=== PATIENT | male | born 1945 | race Caucasian/White ===

== ENCOUNTER 2018-08-31 18:28 | Inpatient (IN) ==
--- NOTE | 2018-08-31 18:33 | Emergency Department Note ---
Disposition Clinical Impression: Pleural effusion, Mass of right lung Disposition: Admitted As Inpatient Condition: Fair General Adult HPI - General Stated complaint: KERA Time Seen by Provider: 08/31/18 18:29 Nursing Notes Reviewed: Yes Vital Signs Reviewed: Yes - History of Present Illness HPI Narrative: Patient's a 73-year-old male with newly diagnosed lung mass seen in this emergency department on 08/20/18 who presents today with worsening shortness of breath and productive cough. He was to be seen by Dr. Eller in 2 days' time for bronchoscopy and thoracentesis but he has been increasingly short of breath and did not feel he could make it that long to be seen. He states he has been unable to eat for 4 days. He lives at home alone. Otherwise he states he feels pain all over. He denies any fever, chest pain, headache, nausea, vomiting, chills, diarrhea, constipation, abdominal pain, rash, or weight change. - Related Data Home Medications Medication Instructions Recorded Confirmed Aspirin 81 mg PO DAILY 08/18/15 08/31/18 Allergies Allergy/AdvReac Type Severity Reaction Status Date / Time No Known Allergies Allergy Verified 08/31/18 18:37 Review of Systems: Pertinent positives and negatives reviewed in history of present illness. All other systems reviewed and are negative or normal. All systems ED: reviewed and negative except as stated. Review of Systems: As Per HPI Past Medical History - Past Medical History Source: patient, old records reviewed, obtained from family Medical history: Reports: cancer, COPD Psychiatric history: Reports: no psych history - Social History Smoking Status: Current every day smoker Smokeless Tobacco Status: No Alcohol use: Reports: none Physical Exam - General Limitations: no limitations General appearance: alert, in distress (Positives after short sentences) - Head Head exam: atraumatic, normocephalic - ENT ENT exam: normal exam, normal oropharynx - Neck Neck exam: Present: normal inspection, full ROM, trachea midline - Chest Chest inspection: Present: normal inspection, symmetric chest wall rise. Absent: tenderness, rash - Expanded Respiratory Exam Location: wheezes: Left, Upper, Right, decreased breath sounds: Right, Lower - Cardiovascular Cardiovascular exam: Present: regular rate, normal rhythm, normal heart sounds - Abdominal Exam Abdominal exam: Present: soft, Non-Tender, normal bowel sounds. Absent: tenderness, distention, guarding, rebound, rigidity - Extremities Exam Extremities exam: Present: normal inspection - Expanded Lower Extremity Exam Ankle exam: Present: swelling (2+ edema bilaterally) Neurovascular/Tendon exam: Absent: pulse deficit - Back Exam Back exam: Present: normal inspection - Neurological Exam Neurological exam: Present: alert, oriented X3 - Psychiatric Psychiatric exam: Present: normal affect, normal mood - Skin Skin exam: Present: warm, dry, intact Course Vital Signs Temperature 98 F 08/31/18 18:40 Pulse Rate 94 08/31/18 18:40 Respiratory Rate 22 08/31/18 18:40 Blood Pressure 140/71 08/31/18 18:40 O2 Sat by Pulse Oximetry 90 08/31/18 18:40 Temperature 98 F 08/31/18 18:43 Pulse Rate 92 08/31/18 20:48 Respiratory Rate 18 08/31/18 20:48 Blood Pressure 155/63 08/31/18 20:48 O2 Sat by Pulse Oximetry 97 08/31/18 20:48 Oxygen Delivery Oxygen Delivery Room Air Medical Decision Making - MDM Narrative Medical decision making narrative: 73-year-old male presenting with symptoms consistent with previous visit to the emergency department where he was found to have a large right lung mass and pleural effusion. He has followed up with Dr. Brunner, mounter hand and was scheduled to undergo bronchoscopy and thoracentesis in 2 days' time. Given his recent diagnosis suspect his current symptoms are due to worsening of his pleural effusion with likely resultant pneumonia. We will obtain CBC, BMP, chest x-ray and blood cultures. We will start the patient on Rocephin as well as azithromycin. Patient is now requiring 2 L of oxygen and is severely short of breath on exertion. Patient agrees with and understands course of treatment plan including plan for admission. All questions answered. - Medical Records Medical records reviewed: Yes I reviewed the patient's medical records. - Lab Data Lab results reviewed: Yes I reviewed the patient's lab results. Result diagrams: 08/31/18 19:02 08/31/18 19: Lab Results 08/31/18 08/31/18 08/31/18 Range/Units 19: 19: 19: WBC 13.8 H (4.3-11.1) K/mcL RBC 5.25 (4.19-5.50) M/mcL Hgb 15.9 (12.9-16.9) g/dL Hct 48.5 (37.5-50.1) % MCV 92.4 (83.0-100.0) fL MCH 30.3 (28.0-33.3) pg MCHC 32.8 (31.6-35.5) g/dL RDW 14.3 (11.5-14.5) % Plt Count 222 (140-400) K/mcL MPV 11.0 (9.4-12.4) fL Immature Gran % 0.5 (0-4) % Seg Neutrophils % 79.0 % Lymphocytes % 7.8 % Monocytes % 12.0 % Eosinophils % 0.5 % Basophils % 0.2 % Neutrophils # 10.9 H (1.6-8.9) K/mcL Lymphocytes # 1.1 (0.6-4.6) K/mcL Monocytes # 1.7 H (0.0-1.3) K/mcL Eosinophils # 0.1 (0.0-0.6) K/mcL Basophils # 0.0 (0.0-0.2) K/mcL PT (9.4-12.1) Seconds INR APTT (26.0-36.0) Seconds Sodium 138 (136-145) mEq/L Potassium 4.1 (3.5-5.1) mEq/L Chloride 98 (98-107) mEq/L Carbon Dioxide 26 (23-29) mEq/L BUN 16 (8-23) mg/dL Creatinine 0.78 (0.70-1.30) mg/dL Est GFR ( Amer) > 60 (> 60) Est GFR (Non-Af Amer) > 60 (> 60) BUN/Creatinine Ratio 21 (6-26) Glucose 96 (70-105) mg/dL Calculated Osmolality 287 (280-300) Lactic Acid (0.5-2.2) mmol/L Calcium 8.8 (8.6-10.3) mg/dL Troponin I < 0.03 (< 0.04) ng/mL B-Natriuretic Peptide 51 (Less than 100) pg/mL 08/31/18 08/31/18 Range/Units 19:02 19:24 WBC (4.3-11.1) K/mcL RBC (4.19-5.50) M/mcL Hgb (12.9-16.9) g/dL Hct (37.5-50.1) % MCV (83.0-100.0) fL MCH (28.0-33.3) pg MCHC (31.6-35.5) g/dL RDW (11.5-14.5) % Plt Count (140-400) K/mcL MPV (9.4-12.4) fL Immature Gran % (0-4) % Seg Neutrophils % % Lymphocytes % % Monocytes % % Eosinophils % % Basophils % % Neutrophils # (1.6-8.9) K/mcL Lymphocytes # (0.6-4.6) K/mcL Monocytes # (0.0-1.3) K/mcL Eosinophils # (0.0-0.6) K/mcL Basophils # (0.0-0.2) K/mcL PT 13.9 H (9.4-12.1) Seconds INR 1.2 APTT 30.8 (26.0-36.0) Seconds Sodium (136-145) mEq/L Potassium (3.5-5.1) mEq/L Chloride (98-107) mEq/L Carbon Dioxide (23-29) mEq/L BUN (8-23) mg/dL Creatinine (0.70-1.30) mg/dL Est GFR ( Amer) (> 60) Est GFR (Non-Af Amer) (> 60) BUN/Creatinine Ratio (6-26) Glucose (70-105) mg/dL Calculated Osmolality (280-300) Lactic Acid 2.9 H (0.5-2.2) mmol/L Calcium (8.6-10.3) mg/dL Troponin I (< 0.04) ng/mL B-Natriuretic Peptide (Less than 100) pg/mL - Radiology Data Radiology results reviewed: Yes I reviewed the patient's radiology results. Chest X-Ray 08/31/18 18:46 IMPRESSION: Extensive right basilar opacities and interstitial markings in the right upper lobe with a right pleural effusion. Overall no significant change from 08/20/2018. D/ / Jorje Shen MD / Jorje Shen MD Interpreting Provider: Jorje Shen MD - EKG Data EKG #1 EKG attestation: Yes I reviewed and interpreted this EKG. EKG results narrative: Sinus rhythm rate is 97. NC 149, QRS 97, QT 363, QTC 462. Nonspecific T-wave inversion in V2 which is new when compared with prior. No evidence of acute ST elevation. No other changes when compared with 08/20/18. Attestation Statement - Attestation Attestation: I examined this patient and my medical decision-making was reviewed with the Resident Physician. I agree with the documented findings, disposition and treatment plan as described except to the extent set forth below. [id number] time provided Patient arrives by EMS. He was dyspneic upon arrival. He had been complaining of a productive cough. He was recently treated for pneumonia. The patient was evaluated immediately upon arrival in conjunction with the resident physician Dr. Barrett
[2018-08-31 19:15] LABS: Basophils % 0.2 %; Eosinophils # 0.1 K/mcL (0.0-0.6); Eosinophils % 0.5 %; Hematocrit 48.5 % (37.5-50.1); Hemoglobin 15.9 g/dL (12.9-16.9); Immature Granulocytes % 0.5 % (0-4); Lymphocytes # 1.1 K/mcL (0.6-4.6); Lymphocytes % 7.8 %; Mean Corpuscular HGB Conc 32.8 g/dL (31.6-35.5); Mean Corpuscular Hemoglobin 30.3 pg (28.0-33.3); Mean Corpuscular Volume 92.4 fL (83.0-100.0); Monocytes # 1.7 K/mcL (0.0-1.3); Neutrophils # 10.9 K/mcL (1.6-8.9); Platelet Count 222 K/mcL (140-400); Red Blood Count 5.25 M/mcL (4.19-5.50); Red Cell Distribution Width 14.3 % (11.5-14.5)
[2018-08-31 19:23] LABS: INR 1.2; Prothrombin Time 13.9 Seconds (9.4-12.1)
[2018-08-31 19:26] LABS: Activated Partial Thrombo Time 30.8 Seconds (26.0-36.0)
[2018-08-31 19:36] LABS: BUN/Creatinine Ratio 21 (6-26); Blood Urea Nitrogen 16 mg/dL (8-23); Calcium 8.8 mg/dL (8.6-10.3); Carbon Dioxide 26 mEq/L (23-29); Chloride 98 mEq/L (98-107); Glucose 96 mg/dL (70-105); Osmolality,Calculated 287 (280-300); Potassium 4.1 mEq/L (3.5-5.1); Sodium 138 mEq/L (136-145); eGFR For Non-African Americans > 60 (> 60)
[2018-08-31 19:37] LABS: Troponin I < 0.03 ng/mL (< 0.04)
[2018-08-31] MEDS ORDERED: cefTRIAXone 1,000 MG in Water for inj. (sterile) 20 ML 10 ML IVP ONE (19:40)
[2018-08-31] MEDS ORDERED: Azithromycin 250 MG TABLET PO STA (19:40)
[2018-08-31] MEDS ORDERED: Isovue-370 500 ML INFUS..BTL IV ONE (19:59)
[2018-08-31] MEDS ORDERED: Ondansetron 4 MG/2 ML VIAL IVP PRN (19:59)
[2018-08-31] MEDS ORDERED: Naloxone 0.4 MG/ML INJ IVP PRN (20:02)
[2018-08-31] MEDS ORDERED: Acetaminophen 325 MG TABLET PO PRN (20:02)
--- NOTE | 2018-08-31 20:16 | Internal Med History&Physical ---
Date of Encounter: 08/31/18 Time of Encounter: 20:13 Internal Medicine - H&P: HPI Chief complaint: Shortness of breath Admitted From: Emergency Dept Plans for Post Hospital Care: Home History of present illness: Mr. Payne is a 73 year old male with history of recently diagnosed lung mass on 08/20 2018 through our ED on a CT chest with right-sided large pleural effusion suspected to be malignant and lesions on the liver also suspected to be malignant, who presents with shortness of breath that has been worsening over the last few days or so. The patient was evaluated in our ED back on 08/20 and diagnosed with a lung mass and a large pleural effusion. At the time he refused admission and was set up with Dr. Boyce for possible bronchoscopy. He was also he was also set up with Dr. Luna in the outpatient setting. At the time he was put on levaquin for suspected pneumonia as well. He also underwent venous Doppler study of the right lower extremity due to swelling and was diagnosed with a superficial venous thrombus. There was no DVT. This time he comes via EMS where he was found to be satting in the mid to upper 80s on room air complaining of worsening shortness of breath. He saw Dr. Eller a couple of days ago and was planned to undergo a thoracentesis and possibly a bronchoscopy sometime next week. He could not wait till then due to his dyspnea. Otherwise he does feel pain allover his body. He denies any fever, chills, nausea, vomiting, chest pain, abdominal pain, diarrhea, constipation, urinary symptoms, or neurological symptoms. In the ED the patient was put on supplemental oxygen 2 L nasal cannula with good response to his saturations. He was afebrile. Chest x-ray showed extensive right basilar opacities and interstitial markings in the right upper lobe with a right pleural effusion. He had laboratory workup that showed leukocytosis and lactic acid was 2.9. The patient was given Zithromax and ceftriaxone in the ED. Past Med Surg Social Fam HX - Past Medical History Medical history: cancer, COPD Additional medical history: trigeminal neuralgia. Diptheria Psychiatric history: no psych history - Past Surgical History Additional surgical history: Back Surgery. Surgery for Diptheria - Social History Smoking Status: Current every day smoker Smokeless Tobacco Status: No Alcohol use: none Drug use: none Internal Medicine - H&P: Meds Aspirin 81 mg PO DAILY 08/18/15 [History] Allergy/AdvReac Type Severity Reaction Status Date / Time No Known Allergies Allergy Verified 08/31/18 18:37 All Systems PM: A 10-system review of systems was performed and is negative for pertinent findings except as documented above in the HPI. Review of systems: All systems reviewed are negative except for as mentioned above - Constitutional Vitals: Temp Pulse Resp BP Pulse Ox 98 F 94 22 140/71 97 08/31/18 18:43 08/31/18 18:43 08/31/18 18:43 08/31/18 18:43 08/31/18 18:52 Exam: GEN: NAD HEENT: AT, NC, No cyanosis, oral mucosa is moist, No JVD Lymphatics: No lymphadenoapthy Eyes: Extrocular muscles intact, anicteric CVS:RRR. S1, S2, No m/r/g RESP: Diminished with scattered rhonchi and crackles at the bases as well. ABD: Soft and tender, ND, +BS EXT: 2+ lowers remedies edema bilaterally, No rashes, 2+ DP NEURO: Nonfocal, CN II-XII intact, No focal motor or sensory deficits Psych: Cooperative, Not anxious or depressed Internal Med - H&P Results - Labs CBC & Chem 7: 08/31/18 19:02 08/31/18 19:02 Labs: Short CBC 08/31/18 Range/Units 19:02 WBC 13.8 H (4.3-11.1) K/mcL Hgb 15.9 (12.9-16.9) g/dL Hct 48.5 (37.5-50.1) % Plt Count 222 (140-400) K/mcL Neutrophils # 10.9 H (1.6-8.9) K/mcL BMP 08/31/18 19:02 Sodium 138 Potassium 4.1 Chloride 98 Carbon Dioxide 26 BUN 16 Creatinine 0.78 Glucose 96 Calcium 8.8 Cardiac Enzymes 08/31/18 Range/Units 19:02 Troponin I < 0.03 (< 0.04) ng/mL - Impressions ITS Impressions Chest X-Ray 08/31/18 18:46 IMPRESSION: Extensive right basilar opacities and interstitial markings in the right upper lobe with a right pleural effusion. Overall no significant change from 08/20/2018. D/ / Jorje Shen MD / Jorje Shen MD Interpreting Provider: Jorje Shen MD - Assessment and plan (1) Acute respiratory failure with hypoxia Current Visit: Yes Status: Acute Assessment and plan: The patient was started on treatment for community acquired pneumonia in the ED. I will continue that however we need to get a CTA of chest to rule out PE. I have ordered that to be done stat prior to transferring to the floor. The patient does have lower extremity swelling and was diagnosed with a superficial thrombus on 2017. (2) Pneumonia Current Visit: Yes Status: Acute Assessment and plan: We will place patient on ceftriaxone and Zithromax. Continue O2 support. Nebs. Check urine strep and Legionella. Follow-up on blood cultures. Check sputum if possible Qualifiers: Pneumonia type: due to unspecified organism Laterality: right Lung location: lower lobe of lung Qualified Code(s): J18.1 - Lobar pneumonia, unspecified organism (3) Lung mass Current Visit: Yes Status: Acute Assessment and plan: I have consulted both pulmonology and oncology. 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 We will consult IR for a thoracentesis tomorrow. We will send fluid for analysis. Will get an echo too. 40 Lasix IV x1 (5) Lactic acidosis Current Visit: Yes Status: Acute Assessment and plan: Patient's lactic acid is 2.9. With pleural effusion, bilaterall LE edema, and hypoxia, I have elected not to give IV fluids. Will repeat lactic acid in the morning after administration of abx. Continue O2 support. (6) Lower extremity edema Current Visit: Yes Status: Acute Assessment and plan: Will order bilateral LE dopplers. Echo ordered as well. Lasix 40 mg IV x1 (7) Tobacco abuse Current Visit: Yes Status: Acute Assessment and plan: Nicotine patch (8) DVT prophylaxis Current Visit: Yes Status: Acute Assessment and plan: Heparin subcutaneous - Time Spent With Patient Total time spent is greater than 50% in coordination of care (as documented) at patient's floor/unit and/or counseling patient:
[2018-08-31] MEDS ORDERED: 0.9 % Sodium Chloride 500 ML IVC ONE (20:22)
[2018-08-31] MEDS ORDERED: Ipratropium/Albuterol Neb 3 ML IH PRN (20:27)
[2018-08-31] MEDS ORDERED: Furosemide 40 MG/4 ML VIAL IVP ONE (21:13)
[2018-08-31] MEDS ORDERED: *HR* Heparin 5,000 UNIT/ML VIAL SQ SCH (22:00)
[2018-08-31] MEDS ORDERED: *HR* Heparin 5,000 UNIT/ML VIAL IVP ONE (22:23)
[2018-08-31] MEDS ORDERED: *HR* Heparin 5,000 UNIT/ML VIAL IVP PRN ×2 (22:23)
--- NOTE | 2018-08-31 22:44 | Event Note ---
Date of Encounter: 08/31/18 Time of Encounter: 22:43 Called by [facility] radiology. Patient has segmental PE in left lower lung. Started him on heparin drip.
[2018-08-31] MEDS: Heparin 25,000 UNIT/500 ML D5W 25,000 UNIT/500 ML BAG IVC SCH (23:14)
[2018-08-31] MEDS: Nicotine 21 MG PATCH.TD24 TD SCH (23:15)
[2018-08-31 23:23] LABS: Hematocrit 50.3 % (37.5-50.1); Hemoglobin 16.3 g/dL (12.9-16.9); Mean Corpuscular HGB Conc 32.4 g/dL (31.6-35.5); Mean Corpuscular Hemoglobin 29.9 pg (28.0-33.3); Mean Corpuscular Volume 92.1 fL (83.0-100.0); Mean Platelet Volume 11.3 fL (9.4-12.4); Platelet Count 198 K/mcL (140-400); Red Blood Count 5.46 M/mcL (4.19-5.50); Red Cell Distribution Width 14.6 % (11.5-14.5)
[2018-08-31 23:31] LABS: Heparin anti-factor XA UFH 0.01 IU/mL (0.30-0.70); INR 1.2; Prothrombin Time 13.7 Seconds (9.4-12.1)
[2018-09-01 00:44] LABS: Bilirubin,Urine Small (Negative); Blood,Urine Negative (Negative); Clarity,Urine Clear (Clear); Color,Urine Yellow (Yellow); Glucose,Urine (UA) Normal (Normal); Ketones,Urine Trace mg/dL (Negative); Leukocyte Esterase,Urine Negative (Negative); Nitrite,Urine Negative (Negative); PH,Urine 5.5 pH Units (5.0-8.0); Protein,Urine Trace mg/dL (Neg-Trace); Specific Gravity,Urine > 1.030 (1.010-1.025); Urobilinogen,Urine Normal (Normal)
[2018-09-01 00:45] LABS: Bacteria,Urine None Seen per hpf (None-Few); Hyaline Casts,Urine None Seen per lpf (None-Few); RBC,Urine 0-3 per hpf (0-3); Squamous Epithelial Cell,Urine Many per lpf (None-Few); WBC,Urine 0-3 per hpf (0-3)
[2018-09-01 05:04] LABS: Basophils # 0.1 K/mcL (0.0-0.2); Basophils % 0.4 %; Eosinophils # 0.1 K/mcL (0.0-0.6); Eosinophils % 0.7 %; Hematocrit 47.2 % (37.5-50.1); Hemoglobin 15.7 g/dL (12.9-16.9); Immature Granulocytes % 0.4 % (0-4); Lymphocytes # 1.2 K/mcL (0.6-4.6); Lymphocytes % 8.7 %; Mean Corpuscular HGB Conc 33.3 g/dL (31.6-35.5); Mean Corpuscular Hemoglobin 30.1 pg (28.0-33.3); Mean Corpuscular Volume 90.4 fL (83.0-100.0); Mean Platelet Volume 11.2 fL (9.4-12.4); Monocytes # 1.9 K/mcL (0.0-1.3); Monocytes % 14.2 %; Neutrophils # 10.1 K/mcL (1.6-8.9); Platelet Count 212 K/mcL (140-400); Red Blood Count 5.22 M/mcL (4.19-5.50); Red Cell Distribution Width 14.6 % (11.5-14.5); Segmented Neutrophils % 75.6 %
[2018-09-01 05:26] LABS: BUN/Creatinine Ratio 24 (6-26); Blood Urea Nitrogen 17 mg/dL (8-23); Calcium 8.6 mg/dL (8.6-10.3); Carbon Dioxide 28 mEq/L (23-29); Chloride 99 mEq/L (98-107); Glucose 109 mg/dL (70-105); Lactate Dehydrogenase 248 Units/L (140-271); Magnesium 2.2 mg/dL (1.6-2.6); Osmolality,Calculated 290 (280-300); Potassium 4.1 mEq/L (3.5-5.1); Sodium 139 mEq/L (136-145); Total Protein 6.4 g/dL (6.4-8.9); eGFR For Non-African Americans > 60 (> 60)
--- NOTE | 2018-09-01 08:37 | Pulmonology Consult Note ---
<Callum Alicea S - Last Filed: 09/01/18 13:17> Date of Encounter: 09/01/18 Time of Encounter: 08:30 Assessment and Plan (1) Pleural effusion Current Visit: Yes Status: Acute Pt presented with increasing SOB from his baseline - was recently admitted for SOB on 08/20/[address] at that time showed right pleural effusion , masslike confluent parenchymal density in medial aspect of medial lobe ?mets to liver ?lytic bone lesions CXR in the ER showed a large right pleural effusion CTA of the chest showed lower left lobe PE - mets to the spine/ribs - large right pleural effusion Pt most likely has an exudative pleural effusion secondary to lung cancer PT 13.7, INR 1.2 Plan: - continue heparin drip as per PE protocol Will hold in AM before procedure at 6am - CT head to r/o brain mets - Plan for thoracentesis tomorrow with definition as per Light's Criteria , followed by bronchoscopy with Dr. Boyce Cell count, glucose, LDH, pH, protein and culture of pleural fluid ordered Cytology of pleural fluid ordered Will check PT/INR in the morning - heme onc consulted , recommendations appreciated - pt need a bronchoscopy vs radioprobe study for tissue diagnosis of lung cancer - keep pt NPO at midnight, may have advanced soft diet as per speech until then (2) Pulmonary embolism Current Visit: Yes Status: Acute See plan as above. Qualifiers: Pulmonary embolism type: other Chronicity: unspecified Acute cor pulmonale presence: without acute cor pulmonale Qualified Code(s): I26.99 - Other pulmonary embolism without acute cor pulmonale (3) Pneumonia Current Visit: Yes Status: Acute Pt has increasing sputum production, fevers - most likely bacterial Legionella and strep pneumo antigens negative Pt meets sepsis criteria for WBC count of 13.4, HR 90 - RR 17, has been afebrile, BP stable overnight Plan: - continue rocephin and zithromax day 1 - keep O2 sat >92% - duonebs - blood cultures pending - sputum cultures pending Qualifiers: Pneumonia type: due to unspecified organism Laterality: right Lung location: lower lobe of lung Qualified Code(s): J18.1 - Lobar pneumonia, unspecified organism (4) Acute respiratory failure with hypoxia Current Visit: Yes Status: Acute See plan as above. (5) Lung mass Current Visit: Yes Status: Acute See plan as above for pleural effusion. (6) DVT prophylaxis Current Visit: Yes Status: Acute On heparin drip. (7) Tobacco abuse Current Visit: Yes Status: Acute Counsled. - offered NRT, pt declines (8) Sepsis Current Visit: Yes Status: Resolved See plan as above for pneumonia. Qualifiers: Sepsis type: sepsis due to unspecified organism Qualified Code(s): A41.9 - Sepsis, unspecified organism History of Present Illness Consult date: 08/31/18 Requesting physician: Portillo Marie Reason for consult: pleural effusion Chief complaint: SOB History of present illness: Mr. Payne is a 73yo male with PMH of COPD who presented on 08/31/2018 for increasing shortness of breath from baseline. He states that he is chronically SOB and struggles to do his activities of daily living due to his SOB. He was recently diagnosed with a lung mass on 08/20/[address] [facility] [address] scan with suspected mets to the liver. He states that he was supposed to follow up with Dr Boyce for evaluation but refused workup, stating that he didn't think he actually had cancer. Of note, he also had a doppler US of the RLE and was found to have a clot of the superficial venous thrombus. The pt came back to the hospital with similar symptoms as his last visit. He continued to have dyspnea, SOB, and increasing coughing. He is producing white sputum. He has some chills but denies fevers. He denies any chest pain, abd pain, N/V/D, or headache. Pt does have some dysphagia. In the ER the pt had a CXR which showed right basilar opacities with a large pleural effusion. CT scan of the chest showed a lower left lobe PE, mets to the spine/ribs, and a right pleural effusion. The pt was admitted under Dr. Marie for further workup. Past Med Surg Social Fam HX - Past Medical History Medical history: cancer, COPD Additional medical history: trigeminal neuralgia. Diptheria Psychiatric history: no psych history - Past Surgical History Additional surgical history: Back Surgery. Surgery for Diptheria - Social History Smoking Status: Current every day smoker Packs per day: 1 Smokeless Tobacco Status: No Alcohol use: none Drug use: none Medications and Allergies Aspirin [Lo-Dose Aspirin EC] 81 mg PO DAILY 11/05/15 [History] Allergy/AdvReac Type Severity Reaction Status Date / Time No Known Allergies Allergy Verified 08/31/18 18:37 All Systems: The remainder of the systems were reviewed and are negative - Constitutional Constitutional: chills, no fever(s), no night sweats - EENT Eyes: no loss of vision Nose, mouth and throat: no dizziness, no headache(s) - Cardiovascular Cardiovascular: dyspnea, dyspnea on exertion, no chest pain, no palpitations - Respiratory Respiratory: cough, dyspnea, dyspnea on exertion, excessive phlegm production - Gastrointestinal Gastrointestinal: nausea, no cramping, no diarrhea, no vomiting - Musculoskeletal Musculoskeletal: arthralgias, back pain - Neurological Neurological: weakness, no headache(s) Physical Examination Vital Signs: Vital Signs, Last 4 Hours Temp Pulse Resp BP Pulse Ox 09/01/18 07:50 97.6 F 90 17 125/62 90 09/01/18 05:00 97.9 F 90 18 129/76 92 General appearance: alert, appears uncomfortable Eyes: nonicteric ENT: oropharynx moist Effort: mildly labored Inspection: normal Auscultation: bilateral: diminished breath sounds, rhonchi Cardiovascular: regular rate and rhythm Gastrointestinal: normoactive bowel sounds, soft, non-tender, non-distended Integumentary: normal Extremities: no cyanosis, no edema Musculoskeletal: no deformities normal mental status, non-focal exam mood appropriate, affect normal Results - Laboratory Findings CBC and BMP: 09/01/18 04:52 09/01/18 04:52 PT/INR, D-dimer PT 13.7 Seconds (9.4-12.1) H 08/31/18 23:11 Abnormal lab findings: Abnormal lab results WBC 13.4 K/mcL (4.3-11.1) H 09/01/18 04:52 RDW 14.6 % (11.5-14.5) H 09/01/18 04:52 Neutrophils # 10.1 K/mcL (1.6-8.9) H 09/01/18 04:52 Monocytes # 1.9 K/mcL (0.0-1.3) H 09/01/18 04:52 PT 13.7 Seconds (9.4-12.1) H 08/31/18 23:11 Glucose 109 mg/dL (70-105) H 09/01/18 04:52 Ur Specific [place] > 1.030 (1.010-1.025) H 09/01/18 00:15 Urine Ketones Trace mg/dL (Negative) H 09/01/18 00:15 Urine Bilirubin Small (Negative) H 09/01/18 00:15 Ur Squamous Epith Cells Many per lpf (None-Few) H 09/01/18 00:15 - Microbiology Findings Microbiology Findings: Microbiology, Last 48 Hours 09/01/18 00:15 Legionella Antigen - Final Urine,Clean Catch Streptococcus pneumoniae Antigen (M - Final 08/31/18 19:05 Blood Culture - Preliminary Peripheral Venipuncture Culture is incubating and being continuously monitored for growth. Final report to follow. 08/31/18 19:02 Blood Culture - Preliminary Peripheral Venipuncture Culture is incubating and being continuously monitored for growth. Final report to follow. - Clinical Findings Intake & Output: Intake & Output 08/31/18 09/01/18 09/01/18 23:59 07:59 15:59 Intake Total 0 / 0 125 / 125 Output Total 1300 / 1300 Balance 0 / 0 -1175 / -1175 Weight 77.8 kg 77.5 kg Consult Discharge Plan - Plan Referrals: NONE,PCP [Primary Care Provider] - <Srinivas Gracia W - Last Filed: 09/01/18 14:44> Date of Encounter: 09/01/18 All Systems: The remainder of the systems were reviewed and are negative Results - Laboratory Findings CBC and BMP: 09/01/18 04:52 09/01/18 04:52 PT/INR, D-dimer PT 13.7 Seconds (9.4-12.1) H 08/31/18 23:11 Abnormal lab findings: Abnormal lab results WBC 13.4 K/mcL (4.3-11.1) H 09/01/18 04:52 RDW 14.6 % (11.5-14.5) H 09/01/18 04:52 Neutrophils # 10.1 K/mcL (1.6-8.9) H 09/01/18 04:52 Monocytes # 1.9 K/mcL (0.0-1.3) H 09/01/18 04:52 PT 13.7 Seconds (9.4-12.1) H 08/31/18 23:11 Glucose 109 mg/dL (70-105) H 09/01/18 04:52 Ur Specific [place] > 1.030 (1.010-1.025) H 09/01/18 00:15 Urine Ketones Trace mg/dL (Negative) H 09/01/18 00:15 Urine Bilirubin Small (Negative) H 09/01/18 00:15 Ur Squamous Epith Cells Many per lpf (None-Few) H 09/01/18 00:15 - Microbiology Findings Microbiology Findings: Microbiology, Last 48 Hours 09/01/18 00:15 Legionella Antigen - Final Urine,Clean Catch Streptococcus pneumoniae Antigen (M - Final 08/31/18 19:05 Blood Culture - Preliminary Peripheral Venipuncture Culture is incubating and being continuously monitored for growth. Final report to follow. 08/31/18 19:02 Blood Culture - Preliminary Peripheral Venipuncture Culture is incubating and being continuously monitored for growth. Final report to follow. - Clinical Findings Intake & Output: Intake & Output 08/31/18 09/01/18 09/01/18 23:59 07:59 15:59 Intake Total 0 / 0 125 / 125 40 / 40 Output Total 1300 / 1300 Balance 0 / 0 -1175 / -1175 40 / 40 Weight 77.8 kg 77.5 kg - Attending Attestation I examined this patient and my medical decision-making was reviewed with the Resident Physician. I agree with the documented findings, disposition and treatment plan as described except to the extent set forth below. We independently had [id number] contact with the patient Patient seen and examined at bedside Labs, radiology, chart personally reviewed. Impression: * Acute hypoxic respiratory failure * Lung Mass * PNA * Pleural Effusion * AECOPD * Acute Subsegmental PE Recs: -Continue supplemental oxygen to keep saturation greater than 88% at all times -Suspected malignant mass -A bronchoscopy is recommended. The procedure , risks, benefits, complications, and expected outcomes have been reviewed. Benefits of diagnosis, as well as risks to include bleeding, infection, pneumothorax which may require surgical intervention, and in a small population. The patient is aware that sometimes test is nondiagnostic. Discussed with patient and agrees to proceed. He also understands that the heparin/anticoagulation will need turned off from standpoint of treatment of venous thromboembolism and that in between increased risk but I suspect this will be modest risk given that this is a subsegmental PE. Keep nothing by mouth at midnight check coags prior to procedure -Agree with antimicrobials sputum and blood culture sent for strep pneumo and legionella antigens -Recommend thoracentesis which can be combined with bronchoscopy tomorrow and we will consider Pleurx catheter based upon reaccumulation -Continue schedule bronchodilators start Symbicort and recommend starting IV steroids today which can be transitioned to enteral formulation tomorrow -Agree with anticoagulation given that he is at increased risk because of underlying malignancy workup of lower extremity venous thromboembolism per primary service Thank you for this consultation pulmonary will continue to follow
[2018-09-01] MEDS ORDERED: cefTRIAXone 2,000 MG in Water for inj. (sterile) 20 ML 20 ML IVPB SCH (09:00)
[2018-09-01] MEDS ORDERED: Azithromycin 500 MG in D5% in Water 250 ML IVPB SCH (09:00)
[2018-09-01] MEDS: Nicotine 21 MG PATCH.TD24 TD SCH (10:19)
[2018-09-01] MEDS: cefTRIAXone 2,000 MG in Water for inj. (sterile) 20 ML 20 ML IVP SCH (10:33)
--- NOTE | 2018-09-01 10:59 | Internal Med Progress Note ---
Hospitalist Progress Note - Encounter Date of Encounter: 09/01/18 Time of Encounter: 10:56 - Subjective Interval History: I have seen and evaluated the patient at bedside. He reports shortness of breath with slight improvement when compared with yesterday. Patient reports chronic pain in the lower extremities b/l. also reports POO appetite and weight lost. - Exam Vitals: Temp Pulse Resp BP Pulse Ox 97.6 F 90 17 125/62 90 09/01/18 07:50 09/01/18 07:50 09/01/18 07:50 09/01/18 07:50 09/01/18 07:50 Exam: itals: Reviewed General: Alert and oriented x4. In mild distress due to shortness of breath. Skin: Normal color, no rash, no lesions. HEENT: EOM, pupils equal, round and reactive. Cardiovascular: RRR, Normal S1 & S2, no rubs, murmurs or gallops. Lungs: decreased breath sounds to auscultation in the right lower lobe, no wheezing or crackles heard. Abdomen: Soft, non-tender, no rigidity. Extremities: pulse in the right lower extr hear by duppler. No pulse heard on the left lower extre. both limb are warmth to touch and no sign of ischemia. Neurological: Normal cognition and motor skills. Rest of the physical exam is non contributory - Assessment and Plan (1) Acute respiratory failure with hypoxia Current Visit: Yes Status: Acute Assessment and Plan: Improving. Multifactorial. PE vs CAP vs pleural effusion. Continue oxygen by nasal cannula. Titrate for O2 sat duration more than 92%. Duo-Nebs Q4RT scheduled Continue Solu-Medrol 40mg/IV Q8HRs (2) Pleural effusion Current Visit: Yes Status: Acute Assessment and Plan: Possible malignant vs infectious effusion. Plan Pulm consulted patient scheduled for thoracentesis tomorrow Hem&Onc consulted (3) Pneumonia Current Visit: Yes Status: Acute Assessment and Plan: Plan discontinue azythromycin as urine for atypical negative continue Ceftriaxoe 1mg/IV daily blood culture: no growth, pending final report sputum culture: pending (4) Lung mass Current Visit: Yes Status: Acute Assessment and Plan: Possible lung CA Pulm consulted patient scheduled for thoracentesis f/u cytology possible broncoscopy per pulmonary team. (5) Pulmonary embolism Current Visit: Yes Status: Acute Assessment and Plan: CT/CT angio chest IMPRESSION: Left lower lobe segmental pulmonary embolic disease. 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 (7) Tobacco abuse Current Visit: Yes Status: Acute (8) DVT (deep venous thrombosis) Current Visit: Yes Status: Acute Assessment and Plan: Venous dupplex report: right GSV acute thrombosis from proximal above knee to distal below knee, right side deep vein system appears patent. Left side has acute DVT extending from CFV to PTV and Peroneal Veins an incidental finding of no arterial flow From Superficial Femoral Artery, Popliteal and Peroneal Artery patient on full dose anticoagulation. (9) PAD (peripheral artery disease) Current Visit: Yes Status: Acute Assessment and Plan: Venous dupplex of the lower extre: on the left lower extr, no arterial flow From Superficial Femoral Artery, Popliteal and Peroneal Artery Plan vascular surgery has been consulted. DVT Prophylaxis: Patient on a Heparin drip due to PE - Summary of Assessment and Plan Summary of Assessment and Plan: Patient to remain in the hospital due to acute hypoxemic respiratory failure. Pleural effusion scheduled for thoracentesis. - Time Spent with Patient Total time spent is greater than 50% in coordination of care (as documented) at patient's floor/unit and/or counseling patient: Greater than 35 minutes (45) Plan of Care Discussed with: patient (and the nurse) Internal Medicine: Result - Labs CBC & Chem 7: 09/01/18 04:52 09/01/18 04:52 Labs: Short CBC 08/31/18 08/31/18 09/01/18 Range/Units 19:02 23:11 04:52 WBC 13.8 H 13.3 H 13.4 H (4.3-11.1) K/mcL Hgb 15.9 16.3 15.7 (12.9-16.9) g/dL Hct 48.5 50.3 H 47.2 (37.5-50.1) % Plt Count 222 198 212 (140-400) K/mcL Neutrophils # 10.9 H 10.1 H (1.6-8.9) K/mcL BMP 08/31/18 09/01/18 19:02 04:52 Sodium 138 139 Potassium 4.1 4.1 Chloride 98 99 Carbon Dioxide 26 28 BUN 16 17 Creatinine 0.78 0.71 Glucose 96 109 H Calcium 8.8 8.6 Cardiac Enzymes 08/31/18 Range/Units 19:02 Troponin I < 0.03 (< 0.04) ng/mL Urine 09/01/18 Range/Units 00:15 Urine Color Yellow (Yellow) Urine Clarity Clear (Clear) Urine pH 5.5 (5.0-8.0) pH Units Ur Specific [place] > 1.030 H (1.010-1.025) Urine Protein Trace (Neg-Trace) mg/dL Urine Glucose (UA) Normal (Normal) mg/dL - ABG Interpretation ABG results: PT/INR, D-dimer PT 13.7 Seconds (9.4-12.1) H 08/31/18 23:11 - Impressions Impressions Chest X-Ray 08/31/18 18:46 IMPRESSION: Extensive right basilar opacities and interstitial markings in the right upper lobe with a right pleural effusion. Overall no significant change from 08/20/2018. D/ / Jorje Shen MD / Jorje Shen MD Interpreting Provider: Jorje Shen MD Chest CTA 08/31/18 19:59 IMPRESSION: Left lower lobe segmental pulmonary embolic disease. Findings were discussed with Portillo Marie at 10:23 pm on 08/31/2018. No significant change and large right pleural effusion with findings of compressive atelectasis and masslike area of consolidation in the right middle lobe. Subcentimeter pulmonary nodules in the right upper lobe are again noted. Sclerotic lesions in the spine and ribs consistent with metastatic disease. Partially visualized suspicious liver lesions concerning for metastatic deposits. D/ / Gio Rodrigez / Gio Rodrigez Interpreting Provider: Gio Rodrigez Consult Discharge Plan - Plan Referrals: NONE,PCP [Primary Care Provider] - (3) Pneumonia Qualifiers: Pneumonia type: due to unspecified organism Laterality: right Lung location: lower lobe of lung Qualified Code(s): J18.1 - Lobar pneumonia, unspecified organism (5) Pulmonary embolism Qualifiers: Pulmonary embolism type: other Chronicity: unspecified Acute cor pulmonale presence: without acute cor pulmonale Qualified Code(s): I26.99 - Other pulmonary embolism without acute cor pulmonale (6) Sepsis Qualifiers: Sepsis type: sepsis due to unspecified organism Qualified Code(s): A41.9 - Sepsis, unspecified organism
[2018-09-01] MEDS: MethylPREDNISolone 40 MG/ML VIAL IVP SCH ×2 (13:13→20:35)
--- NOTE | 2018-09-01 15:44 | Palliative - Consult Note ---
Date of Encounter: 09/01/18 Time of Encounter: 14:00 - Assessment and Plan (1) Pleural effusion Current Visit: Yes Status: Acute Assessment and plan: Pulmonology consult appreciated. Thoracentesis, followed by Bronchoscopy planned tomorrow. (2) Pneumonia Current Visit: Yes Status: Acute Assessment and plan: Patient receiving Ceftriaxone. Management by Primary team. Qualifiers: Pneumonia type: due to unspecified organism Laterality: right Lung location: lower lobe of lung Qualified Code(s): J18.1 - Lobar pneumonia, uns pecified organism (3) Acute respiratory failure with hypoxia Current Visit: Yes Status: Acute (4) Lung mass Current Visit: Yes Status: Acute Assessment and plan: Oncology and Pulmonology consult appreciated. Pulmonology performing th oracentesis and broncholoscopy to confirm cancer diagnosis. Oncology evaluating patient for possible treatment options; patient reports he has no desire to treat cancer at this time. (5) Goals of care, counseling/discussion Current Visit: Yes Status: Acute Assessment and plan: Met with patient from [id number] regarding goals of care. Patient reports he lives at home alone. Son comes by and checks on him some. Has no home health. Reports his plan at this point, "should I leave this place alive" is to return home. Patient reports he will not be going to rehab. Has not participated in PT/OT this visit. Discussed bronch/thoracentesis tomorrow, ok with having testing, but denies wishes to treat cancer. At first reported financial concerns. Patient expressed desire to not have CPR or intubation, but is uninterested in completing State form at this time. Will re-address in family meeting tomorrow. [id number]: Reached out to social work Urban Dockery to discuss financial aspect, as well as Elisabeth Menard LOSS PREVENTION AND SAFETY MANAGER to see what Outpatient Oncology could offer. Elisabeth Menard LOSS PREVENTION AND SAFETY MANAGER to round later and will discuss options. Urban PRICE met with patient whom reported that it wasn't just about the finances, he does not want to live suffering through cancer treatment; expressed desire to reach out to patient's son Lalo's Girlfriend whom first presented the idea of hospice to him. Was also notified by Primary RN, that request for Palliative consult stemmed from patient's Daughter Mariola, whom resides in [place] but expressed desire to move home should proper documentation be provided to give to courts to allow for move. We do not have Lalo's telephone number. [phone]: Reached out to Mariola daughter, who reported would be here later this evening. Daughter reports patient has increased anxiety regarding diagnosis of cancer and afraid to . Daughter reports she will be here tomorrow and will have Lalo join meeting to allow for full goals of care discussion with patient. Patient's daughter Mariola works for a Palliative care company in [place], has already approached the topic of Hospice with her father. Mariola informed this song writer that she feels hospice will be the best option for her dad to get the care he needs at home. Understands DME provided and limitations of services available. Mariola reports she is going to have Lalo join meeting, will attempt to involve Lalo's girlfriend in meeting as patient trusts her. Family meeting set for 1230 pm on 09/01/18. Patient would benefit from MPOA being completed, Urban watson. Palliative-CN HPI - Data of Consult Patient: new to practice Consult date: 09/01/18 Requesting Physician: Alex June MD Primary Care Provider: PCP NONE - Consult Narrative Palliative Care/Comfort Measures: Palliative care Reason for consult: Lung mass, possible CA. History of present illness: Mr. Payne is a 73 year old male Arrived to [facility] for difficulty breathing on 08/31/19. On previous ER visit, patient found to have a large right lung mass with pleural effusion and had follow up scheduled with [facility] in 3 days. Patient admitted for pleural effusion and mass of right lung. Chest x-ray showed: Extensive right basilar opacities and interstitial markings in the right upper lobe with a right pleural effusion. CTA of chest performed, showing: Left lower lobe segmental pulmonary embolic disease; No significant change and large right pleural effusion with findings of compressive atelectasis and masslike area of consolidation in the right middle lobe; Subcentimeter pulmonary nodules in the right upper lobe; Sclerotic lesions in the spine and ribs consistent with metastatic disease; and Partially visualized suspicious liver lesions concerning for metastatic deposits. PMH: COPD, Cancer, Trigeminal neuralgia, and diphtheria. Patient found to have a segmental PE in LLL, heparin drip initiated. Pulmonology consulted; to perform a thoracentesis followed by bronchoscopy planned for 09/02/18. Echo performed showing EF at 60-65%. 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 Primary team medically managing for: Acute respiratory failure with hypoxia, Pleural effusion, Pneumonia, Lung mass, Pulmonary embolism, Sepsis, DVT, and PAD. Vascular surgery consulted for left lower extremity, no arterial flow From Superficial Femoral Artery, Popliteal and Peroneal Artery. Palliative care consult for lung mass, possible cancer. Patient sitting up in bed upon arrival for assessment. Patient alert and oriented times 3. No family present at bedside. Patient reports only bed from sitting in bed. Denies nausea, vomiting, dyspnea, and anxiety. Last bowl movement reported as 08/31/18. CC: Alex June MD - Time Spent with Patient Time: Total time spent is greater than 50% in coordination of care (as documented) at patient's floor/unit and/or counseling patient: Time with patient: 75 minutes Past Med Surg Social Fam HX - Past Medical History Medical history: cancer, COPD Additional medical history: trigeminal neuralgia. Diptheria Psychiatric history: no psych history - Past Surgical History Additional surgical history: Back Surgery. Surgery for Diptheria - Social History Smoking Status: Current every day smoker Packs per day: 1 Smokeless Tobacco Status: No Alcohol use: none Drug use: none Medications and Allergies Aspirin [Lo-Dose Aspirin EC] 81 mg PO DAILY 08/18/15 [History] Allergy/AdvReac Type Severity Reaction Status Date / Time No Known Allergies Allergy Verified 08/31/18 18:37 - Constitutional Constitutional ROS PAL: decreased appetite, lethargy, malaise, weight loss - Cardiovascular Cardiovascular ROS: no chest pain, no dyspnea on exertion, no edema - Respiratory Respiratory: dyspnea - Gastrointestinal Gastrointestinal: no change in bowel habits, no change in stool character, no nausea, no vomiting - Musculoskeletal Musculoskeletal ROS IM: no arthralgias, no myalgias - Integumentary ROS Integumentary: dry skin - Neurological Neurological ROS: weakness - Psychiatric Psychiatric general PM: irritability (per report of daughter whom lives in [place].), no anxiety Palliative Care-Exam - Constitutional Vitals: Temp Pulse Resp BP Pulse Ox 97.5 F L 87 17 121/84 88 09/01/18 15:18 09/01/18 15:18 09/01/18 07:50 09/01/18 15:18 09/01/18 15:18 General appearance: Present: mild distress (succinct answers and tells when ready for staff to leave room.) - Head Head Exam: Present: atraumatic, normal inspection - Eye Eye exam: Present: EOMI, normal appearance - ENT ENT exam: Present: mucous membranes moist, normal external ear exam - Respiratory Respiratory exam: Present: wheezes. Absent: accessory muscle use, respiratory distress - Cardiovascular Cardiovascular exam: Present: +S1, +S2 - Expanded Cardiovascular Exam Peripheral pulses: 0: Posterior Tibialis (L), Dorsalis Pedis (L) PM, 1+: Posterior Tibialis (R), Dorsalis Pedis (R) PM, 2+: Radial (L), Radial (R) - GI/Abdominal Exam GI/Abdominal exam: Present: distended, normal bowel sounds, soft. Absent: tenderness - Expanded GI/Abdominal Exam GI/Abdominal exam: Present: ascites - Rectal Rectal Exam: Present: deferred - Extremities Exam Extremities exam: Absent: tenderness - Neurological Exam Neurological exam: Present: alert, oriented X3, strengths equal and symetr throughout. Absent: altered - Expanded Neurological Exam Patient oriented to: Present: person, place, time Coma Scale Eye Opening: Spontaneous Coma Scale Motor Response: Obeys Commands Coma Scale Verbal Response: Oriented Coma Scale Total: 15 - Psychiatric Psychiatric exam: Present: flat affect - Skin Skin exam: Present: dry, intact, warm Internal Medicine - CN: Reslt - Labs CBC & Chem 7: 09/01/18 04:52 09/01/18 04:52 Labs: Short CBC 08/31/18 08/31/18 09/01/18 Range/Units 19:02 23:11 04:52 WBC 13.8 H 13.3 H 13.4 H (4.3-11.1) K/mcL Hgb 15.9 16.3 15.7 (12.9-16.9) g/dL Hct 48.5 50.3 H 47.2 (37.5-50.1) % Plt Count 222 198 212 (140-400) K/mcL Neutrophils # 10.9 H 10.1 H (1.6-8.9) K/mcL BMP 08/31/18 09/01/18 19:02 04:52 Sodium 138 139 Potassium 4.1 4.1 Chloride 98 99 Carbon Dioxide 26 28 BUN 16 17 Creatinine 0.78 0.71 Glucose 96 109 H Calcium 8.8 8.6 Cardiac Enzymes 08/31/18 Range/Units 19:02 Troponin I < 0.03 (< 0.04) ng/mL Urine 09/01/18 Range/Units 00:15 Urine Color Yellow (Yellow) Urine Clarity Clear (Clear) Urine pH 5.5 (5.0-8.0) pH Units Ur Specific [place] > 1.030 H (1.010-1.025) Urine Protein Trace (Neg-Trace) mg/dL Urine Glucose (UA) Normal (Normal) mg/dL - ABG Interpretation ABG results: PT/INR, D-dimer PT 13.7 Seconds (9.4-12.1) H 08/31/18 23:11 - Impressions Impressions Chest X-Ray 08/31/18 18:46 IMPRESSION: Extensive right basilar opacities and interstitial markings in the right upper lobe with a right pleural effusion. Overall no significant change from 08/20/2018. D/ / Jorje Shen MD / Jorje Shen MD Interpreting Provider: Jorje Shen MD Chest CTA 08/31/18 19:59 IMPRESSION: Left lower lobe segmental pulmonary embolic disease. Findings were discussed with Portillo Marie at 10:23 pm on 08/31/2018. No significant change and large right pleural effusion with findings of compressive atelectasis and masslike area of consolidation in the right middle lobe. Subcentimeter pulmonary nodules in the right upper lobe are again noted. Sclerotic lesions in the spine and ribs consistent with metastatic disease. Partially visualized suspicious liver lesions concerning for metastatic deposits. D/ / Gio Rodrigez / Gio Rodrigez Interpreting Provider: Gio Rodrigez Head CT 09/01/18 10:51 IMPRESSION: 1. No acute intracranial abnormality. 2. 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 3. Left mastoid air cell and middle ear space effusion. D/ / Jorje Shen MD / Jorje Shen MD Interpreting Provider: Jorje Shen MD Echocardiogram 09/01/18 21:10 Impressions: LVEF 60-65%. Normal LV chamber size and function. Mild concentric left ventricular hypertrophy. Mild left ventricular diastolic dysfunction. Normal right ventricular structure and function. Unable to estimate RVSP due to lack of TR jet. There is a trivial pericardial effusion present. No significant valvular dysfunction. Left Ventricular Wall Motion: Rest Echo Findings All wall segments showed normal motion. Findings: Study Quality * Technically adequate exam. ECG Findings * Normal sinus rhythm. Left Ventricle * LVEF 60-65%. * Normal LV chamber size and function. * Mild concentric left ventricular hypertrophy. * Mild left ventricular diastolic dysfunction. Right Ventricle * Normal right ventricular structure and function. Left Atrium * Normal left atrial size. Right Atrium * Normal right atrial size. Aortic Valve * Aortic valve not well visualized. * No aortic regurgitation. * No aortic stenosis. Mitral Valve * Normal mitral valve structure and function. * No mitral stenosis. * No mitral regurgitation. Tricuspid Valve * Normal tricuspid valve structure and function. * No tricuspid regurgitation. * Unable to estimate RVSP due to lack of TR jet. Pulmonic Valve * Pulmonic valve not well visualized. Aorta * Normally sized aortic root. Pericardium * There is a trivial pericardial effusion present. IVC * Normal IVC dimensions and inspiratory collapse. Pulmonary Artery * Pulmonary artery not well visualized. Consult Discharge Plan - Plan Referrals: NONE,PCP [Primary Care Provider] - Palliative Quality Palliative Quality: Screen for Code Status: Yes, Screen for Goals of Care: Yes, Screen for Pain: Yes, If Pain Regimen Started, Initiate Bowel Regimen: NA, Screen for Nausea/Vomitting: Yes Code Status: 08/31/18 20:02 Resuscitation Status: Active [RES] Routine Comment: Resuscitation Status: Full Code Palliative Scale - Palliative Performance Scale How ambulatory is this patient?: Mainly sit / lie What is patient's level of activity and evidence of disease?: Unable hobby/housework, Significant disease How much self-care assistance does patient require?: Considerable assistance required How much oral intake does the patient have?: Normal or reduced What is this patient's level of consciousness?: Full Palliative Performance Score: 50 %
[2018-09-01] MEDS ORDERED: methylPREDNISolone 125 MG/2 ML VIAL IVP SCH (16:00)
--- NOTE | 2018-09-01 16:30 | Oncology Inp Consult Note ---
<Elisabeth Menard L - Last Filed: 09/01/18 23:10> Date of Encounter: 09/01/18 Time of Encounter: 16:00 Assessment and Plan (1) Goals of care, counseling/discussion Status: Acute Assessment and plan: Detailed discussion on radiographic finding concerning for malignancy, prognosis and next steps as detailed below. I did update Galina palliative care nurse practitioner, on our discussion as detailed below. She is planning to meet with patient and family tomorrow at 12:30 PM. 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 We discussed CT findings in detail, discussed next step for tissue diagnosis for confirmation of malignancy which would include bronchoscopy as scheduled tomorrow per pulmonology In addition to this we discussed use of thoracentesis for both palliative and diagnostic purposes Treatment options were briefly introduced which may include a form of systemic treatment options or potential targetable treatment following mutation analysis Treatment intent would be palliative in nature that would ultimately offer longer survival He is very concerned about financial aspects of his treatment cost of treatment. Encouragement was given that we do have a financial counselor/social insurance analyst specialists as well as drug programs that we may look into which could offer her financial support to him. Despite our lengthy discussion on services which may be available to him he does not appear to be overly interested in pursuing these options or any cancer treatment at this time. He wishes to discuss further with his family. Discussed with Galina palliative care nurse practitioner, who also had a similar conversation with patient. They are planing to meet further with patient and family tomorrow to make sure patient and family understand options for treatment and financial assistance which is available. I encouraged patient to continue to discuss with family. Should he decide that treatment options are not the route he wishes to pursue we did discuss the hospice philosophy,in which case he may decide to discuss further with the palliative care team. He does wish to continue to pursue bronchoscopy and thoracentesis tomorrow to make a more informed decision as he continues to discuss options for next steps with patient and care team (3) Pleural effusion Status: Acute Assessment and plan: CT of chest reveals large right pleural effusio He is planned for thoracentesis with pulmonology tomorrow, May consider placement of Pleurx developed reaccumulation Plan as above (4) Pulmonary embolism Status: Acute Assessment and plan: Acute PE/DVT in the setting of suspected active malignancy Noted to have left lower lobe segmental pulmonary embolism on CTA chest on admission Bilateral lower extremity venous Doppler reveals acute thrombosis in the left common femoral through tibial vein, as well as SVT in the right great saphenous vein. plan: Currently on heparin drip as he is preparing for procedure in the a.m. Plan for anticoagulation on discharge to be determined-lovenox vs. DOAC Qualifiers: Pulmonary embolism type: saddle Chronicity: unspecified Acute cor pulmonale presence: without acute cor pulmonale Qualified Code(s): I26.92 - Saddle embolus of pulmonary artery without acute cor pulmonale (5) Pneumonia Status: Acute Assessment and plan: Management per primary team On Rocephin/Zithromax Blood/sputum cultures pending Qualifiers: Pneumonia type: due to unspecified organism Laterality: right Lung location: lower lobe of lung Qualified Code(s): J18.1 - Lobar pneumonia, unspecified organism - Data of Consult Patient: new to practice Consult date: 09/01/18 Requesting Physician: Alex June MD Primary Care Provider: PCP NONE - Consult Narrative Reason for consult: RML lung mass, PE History of present illness: Mr. Payne is a 73 year old male with past medical history significant for COPD, initially presented to ER on 08/20/2018 following encouragement from his family for respiratory symptoms and symptoms related to dehydration that he had been experiencing for some time. Patient does not closely follow a PCP, states he has essentially been in [facility] until a few months ago when he began to experience decreased appetite, unintentional weight loss of reported 50 pounds over the past few months, decreased energy and increased shortness or breath. Upon his initial presentation to the 08/[address] of the chest which revealed a large right pleural effusion with right lower lobe compressive atelectasis, 6.6 x 7.2 cm masslike density in the medial aspect of the right middle lobe with diffuse interlobular lobular septal thickening concerning for local lymphangitic spread, multiple satellite nodules, note of a few small nodules in the left lower lobe, multiple ill-defined hypodensities in the liver concerning for metastatic disease, osteopenia which may obscure subtle metastatic bone lesions. During this ER admission he was also noted to have a SVT to right great saphenous BK. Oncology was consulted at this prior presentation to ER, in talking with your physician he was encouraged to stay for admission however adamantly declined. He was discharged home on oral antibiotics along with coordination of a ppointments with oncology and pulmonology for thoracentesis and bronchoscopy. It appears that he did not attend his follow up with oncology as an outpatient. He presented to [facility] ED on 08/31/2018 for report of worsening shortness of breath above baseline. He was noted to be hypoxic on presentation. A CTA was obtained which revealed the already known findings as noted above in addition to a left lower lobe segmental pulmonary embolism as well as noted sclerotic lesions in the spine and ribs consistent with metastatic disease. He has been admitted for PE, lung mass, symptomatic pleural effusion and pneumonia. Mr. Payne currently lives alone, he has 2 sons Sammy and Eric which live nearby. He has a daughter that lives in [place] that has come up during his stay. No family present during the time of my assessment. He reports a shortness of breath is relatively unchanged, he is able to only walk a very short distance without becoming very short of breath. He denies hemoptysis or chest pain. He denies any signs or symptoms of bleeding, abdominal pain, nausea, vomiting, bowel changes, headache, visual changes or urinary complaint. Current every day smoker, 1 pack per day. Past Med Surg Social Fam HX - Past Medical History Medical history: cancer, COPD Additional medical history: trigeminal neuralgia. Diptheria Psychiatric history: no psych history - Past Surgical History Additional surgical history: Back Surgery. Surgery for Diptheria - Social History Smoking Status: Current every day smoker Packs per day: 1 Smokeless Tobacco Status: No Alcohol use: none Drug use: none Medications and Allergies Aspirin [Lo-Dose Aspirin EC] 81 mg PO DAILY 08/18/15 [History] Allergy/AdvReac Type Severity Reaction Status Date / Time No Known Allergies Allergy Verified 08/31/18 18:37 Constitutional: Present: anorexia, fatigue, weakness, weight loss. Absent: chills, fever(s), frequent falls, night sweats Eyes: Absent: change in vision Nose, mouth and throat: Absent: dysphagia Cardiovascular: Absent: chest pain, edema Respiratory: Present: cough, dyspnea. Absent: hemoptysis Gastrointestinal: Absent: abdominal pain, change in bowel habits, hematemesis, hematochezia, melena, nausea, vomiting Additional comments: Denies dysuria Musculoskeletal: Present: muscle weakness Integumentary: Absent: rash, wounds Neurological: Absent: focal weakness, frequent falls, headache(s) Hematologic/Lymphatic: Present: as per [facility] Oncology - Exam - Constitutional Vitals: Temp Pulse Resp BP Pulse Ox 97.5 F L 87 17 121/84 88 09/01/18 15:18 09/01/18 15:18 09/01/18 07:50 09/01/18 15:18 09/01/18 15:18 General appearance: cooperative, no acute distress, no febrile - Head Head exam: Present: atraumatic - ENT ENT exam: Present: mucous membranes moist - Respiratory Respiratory exam: Present: decreased breath sounds. Absent: respiratory distress - Cardiovascular Cardiovascular exam: Present: RRR, +S1, +S2 - GI/Abdominal GI/Abdominal exam: Present: normal bowel sounds, soft. Absent: guarding, rebound, tenderness - Extremities Exam Extremities exam: Present: normal inspection. Absent: calf tenderness - Neurological Exam Neurological exam: Present: alert, oriented X3, strengths equal and symetr throughout - Psychiatric Psychiatric exam: Present: normal affect, normal mood - Skin Skin exam: Present: dry, intact, normal color, warm Consult Discharge Plan - Plan Referrals: NONE,PCP [Primary Care Provider] - <Cathy Brandon - Last Filed: 09/02/18 13:08> Date of Encounter: 09/02/18 - Data of Consult Requesting Physician: Alex June MD Primary Care Provider: PCP NONE - Consult Narrative History of present illness: Mr. Payne is a 73 year old male Oncology - Exam - Constitutional Vitals: Temp Pulse Resp BP Pulse Ox 97.5 F L 94 20 146/66 92 09/02/18 11:58 09/02/18 11:58 09/02/18 11:58 09/02/18 11:58 09/02/18 11:58 Oncology - Results Labs: 09/02/18 09/02/18 09/02/18 03:03 03:03 03:03 WBC 9.9 RBC 5.04 Hgb 15.0 Hct 45.2 MCV 89.7 MCH 29.8 MCHC 33.2 RDW 14.6 H Plt Count 206 MPV 11.1 Immature Gran % 0.5 Seg Neutrophils % 88.9 Lymphocytes % 6.4 Monocytes % 4.0 Eosinophils % 0.1 Basophils % 0.1 Neutrophils # 8.8 Lymphocytes # 0.6 Monocytes # 0.4 Eosinophils # 0.0 Basophils # 0.0 PT 14.6 H INR 1.3 APTT Heparin Anti-Xa, Unfract Sodium 135 L Potassium 4.1 Chloride 96 L Carbon Dioxide 30 H BUN 18 Creatinine 0.62 L Est GFR ( Amer) > 60 Est GFR (Non-Af Amer) > 60 BUN/Creatinine Ratio 29 H Glucose 131 H Calculated Osmolality 284 Lactic Acid Calcium 8.5 L Magnesium Lactate Dehydrogenase Troponin I B-Natriuretic Peptide Serum Total Protein Urine Color Urine Clarity Urine pH Ur Specific [place] Urine Protein Urine Glucose (UA) Urine Ketones Urine Blood Urine Nitrite Urine Bilirubin Urine Urobilinogen Ur Leukocyte Esterase Urine Microscopic RBC Urine Microscopic WBC Ur Squamous Epith Cells Urine Bacteria Hyaline Casts Ur Culture Indicated? 09/01/18 09/01/18 09/01/18 10:31 04:52 04:52 WBC RBC Hgb Hct MCV MCH MCHC RDW Plt Count MPV Immature Gran % Seg Neutrophils % Lymphocytes % Monocytes % Eosinophils % Basophils % Neutrophils # Lymphocytes # Monocytes # Eosinophils # Basophils # PT INR APTT Heparin Anti-Xa, Unfract 0.42 0.55 Sodium 139 Potassium 4.1 Chloride 99 Carbon Dioxide 28 BUN 17 Creatinine 0.71 Est GFR ( Amer) > 60 Est GFR (Non-Af Amer) > 60 BUN/Creatinine Ratio 24 Glucose 109 H Calculated Osmolality 290 Lactic Acid Calcium 8.6 Magnesium 2.2 Lactate Dehydrogenase 248 Troponin I B-Natriuretic Peptide Serum Total Protein 6.4 Urine Color Urine Clarity Urine pH Ur Specific [place] Urine Protein Urine Glucose (UA) Urine Ketones Urine Blood Urine Nitrite Urine Bilirubin Urine Urobilinogen Ur Leukocyte Esterase Urine Microscopic RBC Urine Microscopic WBC Ur Squamous Epith Cells Urine Bacteria Hyaline Casts Ur Culture Indicated? 09/01/18 09/01/18 08/31/18 04:52 00:15 23:11 WBC 13.4 H RBC 5.22 Hgb 15.7 Hct 47.2 MCV 90.4 MCH 30.1 MCHC 33.3 RDW 14.6 H Plt Count 212 MPV 11.2 Immature Gran % 0.4 Seg Neutrophils % 75.6 Lymphocytes % 8.7 Monocytes % 14.2 Eosinophils % 0.7 Basophils % 0.4 Neutrophils # 10.1 H Lymphocytes # 1.2 Monocytes # 1.9 H Eosinophils # 0.1 Basophils # 0.1 PT INR APTT Heparin Anti-Xa, Unfract Sodium Potassium Chloride Carbon Dioxide BUN Creatinine Est GFR ( Amer) Est GFR (Non-Af Amer) BUN/Creatinine Ratio Glucose Calculated Osmolality Lactic Acid 1.9 Calcium Magnesium Lactate Dehydrogenase Troponin I B-Natriuretic Peptide Serum Total Protein Urine Color Yellow Urine Clarity Clear Urine pH 5.5 Ur Specific [place] > 1.030 H Urine Protein Trace Urine Glucose (UA) Normal Urine Ketones Trace H Urine Blood Negative Urine Nitrite Negative Urine Bilirubin Small H Urine Urobilinogen Normal Ur Leukocyte Esterase Negative Urine Microscopic RBC 0-3 Urine Microscopic WBC 0-3 Ur Squamous Epith Cells Many H Urine Bacteria None Seen Hyaline Casts None Seen Ur Culture Indicated? NO 08/31/18 08/31/18 08/31/18 23:11 23:11 19:24 WBC 13.3 H RBC 5.46 Hgb 16.3 Hct 50.3 H MCV 92.1 MCH 29.9 MCHC 32.4 RDW 14.6 H Plt Count 198 MPV 11.3 Immature Gran % Seg Neutrophils % Lymphocytes % Monocytes % Eosinophils % Basophils % Neutrophils # Lymphocytes # Monocytes # Eosinophils # Basophils # PT 13.7 H INR 1.2 APTT Heparin Anti-Xa, Unfract 0.01 L Sodium Potassium Chloride Carbon Dioxide BUN Creatinine Est GFR ( Amer) Est GFR (Non-Af Amer) BUN/Creatinine Ratio Glucose Calculated Osmolality Lactic Acid 2.9 H Calcium Magnesium Lactate Dehydrogenase Troponin I B-Natriuretic Peptide Serum Total Protein Urine Color Urine Clarity Urine pH Ur Specific [place] Urine Protein Urine Glucose (UA) Urine Ketones Urine Blood Urine Nitrite Urine Bilirubin Urine Urobilinogen Ur Leukocyte Esterase Urine Microscopic RBC Urine Microscopic WBC Ur Squamous Epith Cells Urine Bacteria Hyaline Casts Ur Culture Indicated? 08/31/18 08/31/18 08/31/18 19:02 19:02 19:02 WBC RBC Hgb Hct MCV MCH MCHC RDW Plt Count MPV Immature Gran % Seg Neutrophils % Lymphocytes % Monocytes % Eosinophils % Basophils % Neutrophils # Lymphocytes # Monocytes # Eosinophils # Basophils # PT 13.9 H INR 1.2 APTT 30.8 Heparin Anti-Xa, Unfract Sodium 138 Potassium 4.1 Chloride 98 Carbon Dioxide 26 BUN 16 Creatinine 0.78 Est GFR ( Amer) > 60 Est GFR (Non-Af Amer) > 60 BUN/Creatinine Ratio 21 Glucose 96 Calculated Osmolality 287 Lactic Acid Calcium 8.8 Magnesium Lactate Dehydrogenase Troponin I < 0.03 B-Natriuretic Peptide 51 Serum Total Protein Urine Color Urine Clarity Urine pH Ur Specific [place] Urine Protein Urine Glucose (UA) Urine Ketones Urine Blood Urine Nitrite Urine Bilirubin Urine Urobilinogen Ur Leukocyte Esterase Urine Microscopic RBC Urine Microscopic WBC Ur Squamous Epith Cells Urine Bacteria Hyaline Casts Ur Culture Indicated? 08/31/18 19:02 WBC 13.8 H RBC 5.25 Hgb 15.9 Hct 48.5 MCV 92.4 MCH 30.3 MCHC 32.8 RDW 14.3 Plt Count 222 MPV 11.0 Immature Gran % 0.5 Seg Neutrophils % 79.0 Lymphocytes % 7.8 Monocytes % 12.0 Eosinophils % 0.5 Basophils % 0.2 Neutrophils # 10.9 H Lymphocytes # 1.1 Monocytes # 1.7 H Eosinophils # 0.1 Basophils # 0.0 PT INR APTT Heparin Anti-Xa, Unfract Sodium Potassium Chloride Carbon Dioxide BUN Creatinine Est GFR ( Amer) Est GFR (Non-Af Amer) BUN/Creatinine Ratio Glucose Calculated Osmolality Lactic Acid Calcium Magnesium Lactate Dehydrogenase Troponin I B-Natriuretic Peptide Serum Total Protein Urine Color Urine Clarity Urine pH Ur Specific [place] Urine Protein Urine Glucose (UA) Urine Ketones Urine Blood Urine Nitrite Urine Bilirubin Urine Urobilinogen Ur Leukocyte Esterase Urine Microscopic RBC Urine Microscopic WBC Ur Squamous Epith Cells Urine Bacteria Hyaline Casts Ur Culture Indicated? - Attending Attestation I examined this patient, 09/01/18 and my medical decision-making was reviewed with the Advanced Practice Nurse, Elisabeth Menard. I agree with the documented findings, disposition and treatment plan as described except to the extent set forth below. PAtient was discussed bedside possible diagnosis and interventions necessary prior to treatment. He is reluctant to have treatment but agreeable for thoracentesis with fluid analysis and bronch procedure for diagnosis. Inpatient Charges Provider: Dr. Nelson Brandon Consult - Inpatient: [id number]
--- NOTE | 2018-09-01 22:01 | Vascular/Endovasc Consult Note ---
Date of Encounter: 09/01/18 Time of Encounter: 14:45 Assessment and Plan (1) Pulmonary embolism Status: Acute Qualifiers: Pulmonary embolism type: other Chronicity: unspecified Acute cor pulmonale presence: without acute cor pulmonale Qualified Code(s): I26.99 - Other pulmonary embolism without acute cor pulmonale (2) DVT (deep venous thrombosis) Status: Acute Qualifiers: DVT location: lower extremity Affected thrombotic vein of extremity: femoral Chronicity: acute Laterality: left Qualified Code(s): I82.412 - Acute embolism and thrombosis of left femoral vein (3) PAD (peripheral artery disease) Status: Acute The pathophysiology and natural history of peripheral vascular disease was discussed with the patient and all questions were answered. The patient recently underwent a venous duplex was noted to have significant femoral popliteal and tibial artery occlusions. The patient denies disabling claudication, rest pain, ulceration or gangrene. He is pedal signals present. He has nonpalpable pedal pulses. He is no evidence of ulceration rest pain or gangrene. His occlusive disease appears to be chronic in nature. Recommend conservative management of this patient. - History of Present Illness Consult date: 09/01/18 Requesting physician: Portillo Marie Consult reason: Peripheral vascular disease Chief complaint: Left pain and swelling History of present illness: Mr. Payne is a 73 year old male admitted with shortness of breath. He was found have a pneumonia was started on intravenous antibiotics. Patient has a known lung masses currently being further evaluated. He also has a history of tobacco abuse. The patient experienced leg pain and swelling and underwent a venous duplex. At the time of his duplex he is found have evidence of a left lower extremity DVT as well as left lower extremity peripheral vascular disease. Vascular surgery was counseled for further evaluation. The patient reports limited mobility. He denies disabling claudication, rest pain, ulceration or gangrene. The time of examination is comfortable. He denies any acute chest pain or shortness of breath. Past Med Surg Social Fam HX - Past Medical History Medical history: cancer, COPD Additional medical history: trigeminal neuralgia. Diptheria Psychiatric history: no psych history - Past Surgical History Additional surgical history: Back Surgery. Surgery for Diptheria - Social History Smoking Status: Current every day smoker Packs per day: 1 Smokeless Tobacco Status: No Alcohol use: none Drug use: none - Family History Mother Living Status: Hx Family Endocrine Disorder: Yes Father Living Status: Hx Family Endocrine Disorder: Yes Medications and Allergies RX: Aspirin [Lo-Dose Aspirin EC] 81 mg PO DAILY 08/18/15 [History] Amoxicillin/Clavulanate [Augmentin] 875 mg PO BIDWM #14 tablet 09/03/18 [Rx] Enoxaparin [Lovenox] 80 mg SQ Q12HR #14 syr 09/03/18 [Rx] LORazepam [Ativan] 0.5 mg PO QID PRN 7 Days #30 tablet 09/03/18 [Rx] Mirtazapine [Remeron] 15 mg PO HS #7 tablet 09/03/18 [Rx] RX: Acetaminophen [Tylenol] 650 mg PO Q6HR PRN tablet 09/03/18 [Rx] RX: Albuterol Neb [Proventil Neb] 2.5 mg IH [id number] PRN #50 inhsol 09/03/18 [Rx] RX: OxyCODONE Immed Rel [Roxicodone 5 MG] 5 mg PO Q6HR PRN 7 Days #28 tablet 09/03/18 [Rx] RX: Warfarin [Coumadin] 3 mg PO 1800 #30 tablet 09/03/18 [Rx] RX: predniSONE [PredniSONE] 40 mg PO DAILY #5 tablet 09/03/18 [Rx] Allergy/AdvReac Type Severity Reaction Status Date / Time No Known Allergies Allergy Verified 08/31/18 18:37 All Systems Review: The remainder of the systems were reviewed and are negative - Constitutional Constitutional: no chills, no fever(s) - Cardiovascular Cardiovascular: no chest pain at rest - Vascular Vascular: lower extremity swelling, no leg pain with exertion, no lower extremity ulcers, no lower extremity coldness - Respiratory Respiratory: cough Exam General: Present: Conversant, No Apparent Distress HEENT: Present: Trachea midline, Pupils equal Neck: Absent: JVD, Lymphadenopathy, Left Carotid bruit, Right Carotid bruit Cardiac: Present: Reg Rate and Rhythm, Normal S1 and S2 Lungs: Present: No Wheeze, Rales, Rhonchi, Other (Percent bilaterally) Neuro: Present: Alert and responsive, Motor nerves grossly intact, Sensory nerves grossly intact Abdomen: Present: Soft, Non-tender Vascular: Present: Normal capillary refill, Pulse, diminished (Pedal signals present bilaterally), Edema (Trace left lower extremity edema). Absent: Cyanosis Skin: Present: No rashes noted on visualized skin Musculoskeletal: Present: No Chest Wall Tenderness Consult Discharge Plan - Plan Instructions: Warfarin (By mouth), Amoxicillin/Clavulanate Potassium (By mouth), Enoxaparin (Injection), Pleural Effusion (DC) Additional Instructions: PRO TIME - IN 2 DAYS; THEN, MONTHLY PLUS "IF NEEDED" Referrals: Bill Boyce MD [Partnered Physician] - (appt requested) NONE,PCP [Primary Care Provider] - Prescriptions: RX: Albuterol Neb [Proventil Neb] 2.5 mg IH [id number] PRN #50 inhsol PRN Reason: Shortness Of Breath/Wheezing RX: OxyCODONE Immed Rel [Roxicodone 5 MG] 5 mg PO Q6HR PRN 7 Days #28 tablet PRN Reason: Pain Enoxaparin [Lovenox] 80 mg SQ Q12HR #14 syr Amoxicillin/Clavulanate [Augmentin] 875 mg PO BIDWM #14 tablet LORazepam [Ativan] 0.5 mg PO QID PRN 7 Days #30 tablet PRN Reason: Anxiety Mirtazapine [Remeron] 15 mg PO HS #7 tablet RX: predniSONE [PredniSONE] 40 mg PO DAILY #5 tablet RX: Warfarin [Coumadin] 3 mg PO 1800 #30 tablet
[2018-09-01] MEDS: Heparin 25,000 UNIT/500 ML D5W 25,000 UNIT/500 ML BAG IVC SCH (23:23)
[2018-09-02 03:22] LABS: Basophils % 0.1 %; Eosinophils % 0.1 %; Hematocrit 45.2 % (37.5-50.1); Immature Granulocytes % 0.5 % (0-4); Lymphocytes # 0.6 K/mcL (0.6-4.6); Lymphocytes % 6.4 %; Mean Corpuscular HGB Conc 33.2 g/dL (31.6-35.5); Mean Corpuscular Hemoglobin 29.8 pg (28.0-33.3); Mean Corpuscular Volume 89.7 fL (83.0-100.0); Mean Platelet Volume 11.1 fL (9.4-12.4); Monocytes # 0.4 K/mcL (0.0-1.3); Neutrophils # 8.8 K/mcL (1.6-8.9); Platelet Count 206 K/mcL (140-400); Red Blood Count 5.04 M/mcL (4.19-5.50); Red Cell Distribution Width 14.6 % (11.5-14.5); Segmented Neutrophils % 88.9 %
[2018-09-02 03:33] LABS: INR 1.3; Prothrombin Time 14.6 Seconds (9.4-12.1)
[2018-09-02 03:38] LABS: BUN/Creatinine Ratio 29 (6-26); Blood Urea Nitrogen 18 mg/dL (8-23); Calcium 8.5 mg/dL (8.6-10.3); Carbon Dioxide 30 mEq/L (23-29); Chloride 96 mEq/L (98-107); Glucose 131 mg/dL (70-105); Osmolality,Calculated 284 (280-300); Potassium 4.1 mEq/L (3.5-5.1); Sodium 135 mEq/L (136-145); eGFR For Non-African Americans > 60 (> 60)
[2018-09-02] MEDS: MethylPREDNISolone 40 MG/ML VIAL IVP SCH ×3 (05:12→18:00)
--- NOTE | 2018-09-02 07:04 | Pulmonology Progress Note ---
Date of Encounter: 09/02/18 Time of Encounter: 07:04 Assessment and Plan (1) Mass of right lung Current Visit: Yes Status: Acute This is concerning for primary lung carcinoma plan for bronchoscopy with biopsy today heparin has been off since 6 AM (2) Pleural effusion Current Visit: Yes Status: Acute Plan for thoracentesis today for diagnostic as well as therapeutic utility pleural fluid studies will be ordered can consider Pleurx catheter based upon reaccumulation (3) Pneumonia Current Visit: Yes Status: Acute Patient currently on antimicrobial coverage cultures pending I suspect he can be transitioned to an oral beta lactams such as Augmentin to complete a 7-10 day course Qualifiers: Pneumonia type: due to unspecified organism Laterality: right Lung location: unspecified part of lung Qualified Code(s): J18.9 - Pneumonia, unspecified organism (4) COPD with exacerbation Current Visit: Yes Status: Acute Symbicort 160/4.5 2 puffs twice a day Oral glucocorticoids prednisone 40 mg with taper over 2 weeks Schedule duo nebs every 6 hours with every 2 hours albuterol as needed Tobacco Cessation counseling given Subjective Principal diagnosis: Lung Mass Interval history: Mr. Dempsey done well overnight he says his breathing is still labored but about the same denies any hemoptysis. Head CT was without acute process. He was seen by vascular surgery because of flow limitation in the left leg which appears to be chronic. Objective PUL Vital signs: Last Vital Signs Temp 97.5 F L 09/02/18 04:45 Pulse 68 09/02/18 04:45 Resp 16 09/02/18 04:45 BP 130/67 09/02/18 04:45 Pulse Ox 90 09/02/18 04:45 General appearance: no acute distress Eyes: nonicteric Auscultation: right: diminished breath sounds, bilateral: rhonchi Cardiovascular: regular rate and rhythm Gastrointestinal: normoactive bowel sounds, soft Extremities: no cyanosis, no edema, no clubbing Musculoskeletal: no deformities normal mental status, non-focal exam mood appropriate Results - Laboratory Findings CBC and BMP: 09/02/18 03:03 09/02/18 03:03 PT/INR, D-dimer PT 14.6 Seconds (9.4-12.1) H 09/02/18 03:03 Abnormal lab findings: Abnormal lab results RDW 14.6 % (11.5-14.5) H 09/02/18 03:03 PT 14.6 Seconds (9.4-12.1) H 09/02/18 03:03 Sodium 135 mEq/L (136-145) L 09/02/18 03:03 Chloride 96 mEq/L (98-107) L 09/02/18 03:03 Carbon Dioxide 30 mEq/L (23-29) H 09/02/18 03:03 Creatinine 0.62 mg/dL (0.70-1.30) L 09/02/18 03:03 BUN/Creatinine Ratio 29 (6-26) H 09/02/18 03:03 Glucose 131 mg/dL (70-105) H 09/02/18 03:03 Calcium 8.5 mg/dL (8.6-10.3) L 09/02/18 03:03 Ur Specific [place] > 1.030 (1.010-1.025) H 09/01/18 00:15 Urine Ketones Trace mg/dL (Negative) H 09/01/18 00:15 Urine Bilirubin Small (Negative) H 09/01/18 00:15 Ur Squamous Epith Cells Many per lpf (None-Few) H 09/01/18 00:15 - Microbiology Findings Microbiology Findings: Microbiology, Last 48 Hours 09/01/18 14:34 Sputum Culture - Final Sputum 09/01/18 00:15 Legionella Antigen - Final Urine,Clean Catch Streptococcus pneumoniae Antigen (M - Final 08/31/18 19:05 Blood Culture - Preliminary Peripheral Venipuncture Culture is incubating and being continuously monitored for growth. Final report to follow. 08/31/18 19:02 Blood Culture - Preliminary Peripheral Venipuncture Culture is incubating and being continuously monitored for growth. Final report to follow. - Clinical Findings Intake & Output: Intake & Output 09/01/18 09/01/18 09/02/18 15:59 23:59 07:59 Intake Total 40 / 40 375 / 375 191 / 191 Output Total 175 / 175 Balance 40 / 40 375 / 375 16 16 Weight 77.2 kg Consult Discharge Plan - Plan Referrals: NONE,PCP [Primary Care Provider] -
--- NOTE | 2018-09-02 08:50 | Anesthesia Evaluation PreOp ---
Date of Encounter: 09/02/18 Time of Encounter: 11:58 - Past History Planned Operation: bronch thoracentesis Cardiac History: Other (PVD) Pulmonary History: Smoker (1 ppd), COPD, Other (LLL PE, large right pleural effusion with findings of compressive atelectasis and masslike area of consolidation in the right middle lobe. 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) Other Medical History: Other (possible metastasis to liver and spine) Anesthesia History: No Prior Anesthetic Complications, Past Anesthesia Alcohol Use: none Drug use: none Medications and Allergies Aspirin [Lo-Dose Aspirin EC] 81 mg PO DAILY 08/18/15 [History] Allergy/AdvReac Type Severity Reaction Status Date / Time No Known Allergies Allergy Verified 08/31/18 18:37 - Meds/Allergy Pre-op Review Medications Reviewed: Yes Allergies Reviewed: Yes Beta Blockers on Current Med List: No Anesthesia Results - Labs 09/02/18 03:03 09/02/18 03:03 - Imaging EKG: report reviewed (sinus rhythm), image reviewed Additional studies: 08/31/2018 Impressions: LVEF 60-65%. Normal LV chamber size and function. Mild concentric left ventricular hypertrophy. Mild left ventricular diastolic dysfunction. Normal right ventricular structure and function. Unable to estimate RVSP due to lack of TR jet. There is a trivial pericardial effusion present. No significant valvular dysfunction. 08/31/2018 IMPRESSION: Left lower lobe segmental pulmonary embolic disease. Findings were discussed with Portillo Marie at 10:23 pm on 08/31/2018. No significant change and large right pleural effusion with findings of compressive atelectasis and masslike area of consolidation in the right middle lobe. Subcentimeter pulmonary nodules in the right upper lobe are again noted. Sclerotic lesions in the spine and ribs consistent with metastatic disease. Partially visualized suspicious liver lesions concerning for metastatic deposits. Anesthesia Exam Vital Signs/O2 Sat/Glucose, Most Recent Temp Pulse Resp BP Pulse Ox 97.5 F L 73 18 130/77 89 09/02/18 07:08 09/02/18 07:08 09/02/18 07:08 09/02/18 07:08 09/02/18 07:08 Weight: 77 kg NPO (# of Hours): > 8 hr - HEENT Pupil (Motor): Pupils equal Mallampati: II Oral Opening: Greater than 3 - SHELL ASSEMBLER LOC: Oriented SHELL ASSEMBLER Motor: Normal RUE, Normal LUE, Normal RLE, Normal LLE, Normal Face SHELL ASSEMBLER Sensory: Normal: RUE, LUE, RLE, LLE, Face - Cardiac Rhythm: Regular Murmur: None - Pulmonary Breath Sounds: right Rales Respiratory Effort: Symmetrical Anesthesia Assess/Plan ASA Score: 4 Level of consciousness: Cooperative Anesthetic Plan: General Monitoring Plan: Standard Monitors Recovery Plan: PACU
[2018-09-02] MEDS: cefTRIAXone 2,000 MG in Water for inj. (sterile) 20 ML 20 ML IVP SCH (09:43)
[2018-09-02] MEDS: Nicotine 21 MG PATCH.TD24 TD SCH (09:43)
[2018-09-02] MEDS ORDERED: Dexamethasone 4 MG/ML VIAL ONE (10:35)
[2018-09-02] MEDS ORDERED: Ondansetron 4 MG/2 ML VIAL ONE (10:35)
[2018-09-02] MEDS ORDERED: Lidocaine -MPF 2% 2 ML VIAL ONE (10:35)
[2018-09-02] MEDS ORDERED: *HR* FentaNYL (PF) 100 MCG/2 ML VIAL ONE (10:35)
[2018-09-02] MEDS ORDERED: *HR* Propofol 200 MG/20 ML VIAL IVP ONE (10:35)
[2018-09-02] MEDS ORDERED: Propofol 500 MG/50 ML INFUS..BTL ONE (10:35)
[2018-09-02] MEDS ORDERED: Lidocaine -MPF 4% 5 ML AMPUL ONE (11:49)
[2018-09-02] MEDS ORDERED: *HR* Succinylcholine 200 MG/10 ML VIAL IVP ONE (11:49)
[2018-09-02] MEDS ORDERED: *HR* Promethazine 25 MG/ML VIAL IVP PRN (12:21)
[2018-09-02] MEDS ORDERED: *HR* OxyCODONE Immed Rel 5 MG TABLET PO PRN (12:21)
[2018-09-02] MEDS ORDERED: *HR* PHENYLEPHRINE 1,000 MCG/10 ML SYRINGE IVP ONE (12:26)
--- NOTE | 2018-09-02 12:42 | Electrocardiograph Report ---
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
[2018-09-02] MEDS ORDERED: Albuterol 2.5 MG/3 ML NEBULIZER IH ONE (13:32)
[2018-09-02] MEDS ORDERED: Albuterol 2.5 MG/3 ML NEBULIZER ONE (13:34)
--- NOTE | 2018-09-02 14:00 | Anesthesia Evaluation Post Op ---
Date of Encounter: 09/02/18 Time of Encounter: 13:59 - Vital Signs Vital Signs: Vital Signs/O2 Sat/Glucose, Most Recent Temp Pulse Resp BP Pulse Ox 97.1 F L 92 16 111/71 95 09/02/18 13:22 09/02/18 13:42 09/02/18 13:42 09/02/18 13:42 09/02/18 13:42 - Lungs Lungs: Rales (better than pre op) - Airway Airway: Non-obstructed - Cardiovascular Regular Rate - Mental Status Mental Status: Alert & Oriented, Answers Appropriately - Pain Pain Scale: 0 - Nausea Vomiting Nausea Vomiting: Not Present - Hydration Hydration: Tolerates oral liquids - Discharge PostOp Status: Transfer Patient to floor
--- NOTE | 2018-09-02 14:05 | Palliative Progress Note ---
Date of Encounter: 09/02/18 Time of Encounter: 11:00 - Assessment and plan (1) Pleural effusion Current Visit: Yes Status: Acute Assessment and plan: Spoke with patient regarding management of Pleural effusion. Patient's family vel Brooks discussed potential of Pleurx to keep patient from having to return to hospital for recurrent pleural effusion. Patient expressed desire to inquire if this would be an option. Notified Dr. Gracia of patient and family's desires. Dr. Gracia expressed would be considered. (2) Pneumonia Current Visit: Yes Status: Acute Qualifiers: Pneumonia type: due to unspecified organism Laterality: right Lung location: unspecified part of lung Qualified Code(s): J18.9 - Pneumonia, unspecified organism (3) Acute respiratory failure with hypoxia Current Visit: Yes Status: Acute Assessment and plan: Patient's oxygen saturation 95% on 5L NC. (4) Lung mass Current Visit: Yes Status: Acute Assessment and plan: Oncology met with patient yesterday. Patient expressed desires for no further aggressive cancer management. Patient remained interested in Bronchoscopy for Cancer confirmation. (5) Goals of care, counseling/discussion Current Visit: Yes Status: Acute Assessment and plan: Conducted goals of care meeting initially with patient and Josseline. Patient expressed desire to go home with [facility], per family request of Agency as she is employed with them. Patient expressed to go home as soon as possible, potentially tomorrow. Patient will need supportive care of family, as hospice does not provide 24/7 nursing care; verbalized understanding. Discussed CODE STATUS with patient. Patient expressed desire to go home and be "kept comfortable," explained different CODE STATUS options in [place], expressed desire to be DNRCC. State form completed. 1230pm: Met with patient's children regarding goals of care. Family in agreement to bring patient home with [facility] in reflection of patient's wishes. Patient will need support of family care. Hospice nurse/aides will provide personal hygiene and assistance in ensuring symptomatic control, but family will provide majority of care; family verbalized understanding. Plan for discharge home tomorrow. Mariola working to return to assist in care of patient. Patients family upset regarding ability to discharge so quickly. Explained with hospice care patient does not need to be at baseline as goal to get home and keep comfortable, verbalized understanding. Family now in agreement with plan of care. Spoke with Sandy at [facility] hosp[facility]. Planned for acceptance tomorrow. DME Ordered. Will manage pleurx drain. Family contact information: Mariola Daughter [phone] Sammy Son [phone] Nazanin Daughter in Law [phone] Lalo Son [phone] Lalo's Girlfriend Josseline [phone] - Time Spent With Patient Total time spent is greater than 50% in coordination of care (as documented) at patient's floor/unit and/or counseling patient: Greater than 35 minutes - Subjective Interval history: Patient lying in bed with eyes closed speaking with patient's family, Josseline (Son Eric's Girlfriend) present at bedside. Patient alert and oriented times 3. Patient denies pain, anxiety, shortness of breath, nausea, and vomiting. Patient complains of depression and loss of appetite. Patient discussed being ready for procedures today, bronchoscopy and thoracentesis. Informed patient that family meeting had been set for 1230pm to discuss goals of care with patient, patient agreeable, but also reports that he will decide what will be happening to him and reports he desires to go home with hospice care. - Constitutional Vitals: Abnormal lab results RDW 14.6 % (11.5-14.5) H 09/02/18 03:03 PT 14.6 Seconds (9.4-12.1) H 09/02/18 03:03 Sodium 135 mEq/L (136-145) L 09/02/18 03:03 Chloride 96 mEq/L (98-107) L 09/02/18 03:03 Carbon Dioxide 30 mEq/L (23-29) H 09/02/18 03:03 Creatinine 0.62 mg/dL (0.70-1.30) L 09/02/18 03:03 BUN/Creatinine Ratio 29 (6-26) H 09/02/18 03:03 Glucose 131 mg/dL (70-105) H 09/02/18 03:03 Calcium 8.5 mg/dL (8.6-10.3) L 09/02/18 03:03 Ur Specific [place] > 1.030 (1.010-1.025) H 09/01/18 00:15 Urine Ketones Trace mg/dL (Negative) H 09/01/18 00:15 Urine Bilirubin Small (Negative) H 09/01/18 00:15 Ur Squamous Epith Cells Many per lpf (None-Few) H 09/01/18 00:15 General appearance: Present: cooperative, no acute distress, thin - Head Head exam: Present: atraumatic, normal inspection - Eye Eye exam: Absent: periorbital swelling, periorbital tenderness Pupils: Present: normal accommodation, PERRL - ENT ENT exam: Present: mucous membranes dry, normal external ear exam - Neck Neck exam: Present: full ROM, normal inspection - Respiratory Respiratory exam: Present: accessory muscle use, decreased breath sounds. Absent: wheezes, tachypnea - Cardiovascular Cardiovascular exam: Present: +S1, +S2 - GI/Abdominal GI/Abdominal exam: Present: diminished bowel sounds, soft, tenderness - Rectal Rectal exam: Present: deferred - Extremities Exam Extremities exam: Present: normal inspection. Absent: calf tenderness - Back Exam Back exam: Present: full ROM, normal inspection - Neurological Exam Neurological exam: Present: alert, oriented X3, strengths equal and symetr throughout. Absent: altered - Psychiatric Psychiatric exam: Present: normal affect, normal mood - Skin Skin exam: Present: dry, intact, warm Palliative Quality Palliative Quality: Screen for Code Status: Yes, Screen for Goals of Care: Yes, Screen for Pain: Yes, If Pain Regimen Started, Initiate Bowel Regimen: NA, Screen for Nausea/Vomitting: Yes Code Status: 08/31/18 20:02 Resuscitation Status: Active [RES] Routine Comment: Resuscitation Status: Full Code 09/02/18 10:50 DNR [Resuscitation Status: Active] [RES] Routine Comment: State form completed. Resuscitation Status: DNR-Comfort Care - Labs CBC & Chem 7: 09/02/18 03:03 09/02/18 03:03 Labs: Laboratory Results - last 24 hr 09/02/18 09/02/18 09/02/18 03:03 03:03 03:03 WBC 9.9 RBC 5.04 Hgb 15.0 Hct 45.2 MCV 89.7 MCH 29.8 MCHC 33.2 RDW 14.6 H Plt Count 206 MPV 11.1 Immature Gran % 0.5 Seg Neutrophils % 88.9 Lymphocytes % 6.4 Monocytes % 4.0 Eosinophils % 0.1 Basophils % 0.1 Neutrophils # 8.8 Lymphocytes # 0.6 Monocytes # 0.4 Eosinophils # 0.0 Basophils # 0.0 PT 14.6 H INR 1.3 Sodium 135 L Potassium 4.1 Chloride 96 L Carbon Dioxide 30 H BUN 18 Creatinine 0.62 L Est GFR ( Amer) > 60 Est GFR (Non-Af Amer) > 60 BUN/Creatinine Ratio 29 H Glucose 131 H Calculated Osmolality 284 Calcium 8.5 L - Impressions Impressions Head CT 09/01/18 10:51 IMPRESSION: 1. No acute intracranial abnormality. 2. 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 3. Left mastoid air cell and middle ear space effusion. D/ / Jorje Shen MD / Jorje Shen MD Interpreting Provider: Jorje Shen MD - ABG Interpretation ABG results: PT/INR, D-dimer PT 14.6 Seconds (9.4-12.1) H 09/02/18 03:03 Palliative Scale - Palliative Performance Scale How ambulatory is this patient?: Mainly sit / lie What is patient's level of activity and evidence of disease?: Unable hob by/housework, Significant disease How much self-care assistance does patient require?: Considerable assistance required How much oral intake does the patient have?: Normal or reduced What is this patient's level of consciousness?: Full Palliative Performance Score: 50 % Consult Discharge Plan - Plan Referrals: NONE,PCP [Primary Care Provider] -
[2018-09-02] MEDS ORDERED: Albuterol 2.5 MG/3 ML NEBULIZER IH PRN (14:20)
[2018-09-02] MEDS ORDERED: Ipratropium/Albuterol Neb 3 ML ONE (15:29)
[2018-09-02] MEDS: *HR* Enoxaparin 80 MG/0.8 ML SYRINGE SQ SCH (15:43)
[2018-09-02] MEDS: Ipratropium/Albuterol Neb 3 ML IH SCH ×2 (16:23→22:35)
[2018-09-02 16:30] LABS: Source of Body Fluid RLL BAL
--- NOTE | 2018-09-02 17:12 | Oncology Inp Progress Note ---
Date of Encounter: 09/02/18 Time of Encounter: 17:00 (1) Goals of care, counseling/discussion Current Visit: Yes Status: Acute Assessment and plan: Reviewed Palliative care note, following detailed discussion today with patient/family, decision was made to transition to home with hospice Appreciate assistance of palliative care team in logistics I did again clarify with patient and patients daughter that he does wish to go home with hospice and he understands that he will not have further follow up with the cancer center to discuss cancer treatment options which may be available to him while on hospice care, patient verbalizes understanding and states he is at peace with this decision I did offer patient an appointment to discuss pathology results from bronchoscopy today however he declined, states that when he gets home he just wi shes to stay there Will arrange for patient to be called with pathology results per patient request (2) Mass of right lung Current Visit: Yes Status: Acute Assessment and plan: CT chest/CT chest findings as detailed in history of present illness concerning for primary lung malignancy with 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 Symptomatically reports improvement in SOB following thora (3) Pulmonary embolism Current Visit: Yes Status: Acute Assessment and plan: Acute PE/DVT in the setting of suspected active malignancy Noted to have left lower lobe segmental pulmonary embolism on CTA chest on admission Bilateral lower extremity venous Doppler reveals acute thrombosis in the left common femoral through tibial vein, as well as SVT in the right great saphenous vein. plan: Transitioned to lovenox Lovenox is recommended for treatment of acute thrombus in setting of active malignancy, preferred treatment for 4-6 weeks then may follow with DOAC Given discussion today and plan to transition to hospice care it may be reasonable to transition to DOAC for comfort reasons if patient wishes Qualifiers: Pulmonary embolism type: saddle Chronicity: unspecified Acute cor pulmonale presence: without acute cor pulmonale Qualified Code(s): I26.92 - Saddle embolus of pulmonary artery without acute cor pulmonale Oncology: Subj Interval history: Mr. Payne is sitting up in bed, family and friends at bedside. No acute events overnight. Pain well controlled. His SOB has improved following thoracentesis/Pleurx catheter placement. He is hungry and asking to eat - Constitutional Vitals: Vital Signs Temp Pulse Resp BP Pulse Ox 09/02/18 16:23 16 94 09/02/18 15:32 97.4 F L 86 18 116/83 91 09/02/18 14:02 97.1 F L 90 17 130/69 94 09/02/18 13:52 97.1 F L 92 18 124/69 95 09/02/18 13:42 92 16 111/71 95 09/02/18 13:32 90 16 119/80 95 09/02/18 13:22 97.1 F L 89 15 104/74 94 09/02/18 11:58 97.5 F L 94 20 146/66 92 09/02/18 07:08 97.5 F L 73 18 130/77 89 09/02/18 04:45 97.5 F L 68 16 130/67 90 09/02/18 00:12 97.7 F 77 16 157/66 92 Intake and Output 09/02/18 09/02/18 09/02/18 07:59 15:59 23:59 Intake Total Output Total 175 / 175 Balance Intake: IV Fluids Heparin 25,000 UNIT/500 ML D5W 25,000 unit In 500 ml @ 14 UNIT /KG/HR 21.784 mls/hr IVC . [id number] [facility] Rx#:[id number] Rocephin 2,000 MG In Water for inj. (sterile) 20 ML @ 600 mls/ hr IVP Q24H [facility] Rx#:[id number] Oral 0 / 0 Output: Urine 175 / 175 Other: Weight 77.2 kg Patient Weight 09/02/18 23:59 Weight 77.2 kg General appearance: cooperative, no acute distress, no febrile - Head Head exam: Present: atraumatic - ENT ENT exam: Present: mucous membranes moist - Respiratory Respiratory exam: Present: decreased breath sounds. Absent: respiratory distress - Cardiovascular Cardiovascular exam: Present: RRR, +S1, +S2 - GI/Abdominal GI/Abdominal exam: Present: normal bowel sounds, soft. Absent: tenderness - Extremities Exam Extremities exam: Absent: calf tenderness Additional comments: BLE edema 1+ - Neurological Exam Neurological exam: Present: alert, oriented X3, no focal deficits, strengths equal and symetr throughout - Psychiatric Psychiatric exam: Present: normal affect, normal mood - Skin Skin exam: Present: dry, intact, normal color, warm Oncology: Obj Data - Labs CBC & Chem 7: 09/02/18 03:03 09/02/18 03:03 - Impressions Impressions Chest X-Ray 09/02/18 13:10 IMPRESSION: 1. Large right pleural effusion, not appreciably changed following PleurX catheter placement. No pneumothorax. 2. Infiltrate noted throughout the right lung, stable, and concerning for pneumonia. 3. Mild atelectasis in the left lung base. D/ / 09/02/2018 14:37:22 John Paredes MD / griselda Interpreting Provider: John Paredes MD - ABG Interpretation ABG results: PT/INR, D-dimer PT 14.6 Seconds (9.4-12.1) H 09/02/18 03:03 Consult Discharge Plan - Plan Referrals: NONE,PCP [Primary Care Provider] - Inpatient Charges Provider: Elisabeth Menard CNP Follow up - Inpatient: [id number]
[2018-09-02 18:05] LABS: RBC,Pleural Fluid 0.023 M/mcL
[2018-09-02 18:31] LABS: Total Protein,Pleural Fluid 3.9 g/dL (No Ref Range)
[2018-09-02 19:30] LABS: Appearance of Pleural Fl Cloudy (Clear)
[2018-09-02] MEDS ORDERED: Mirtazapine 15 MG TABLET PO SCH (21:00)
[2018-09-02 22:00] LABS: Appearance of Body Fluid Clear (Clear); Volume of Body Fluid 15 mL
--- NOTE | 2018-09-02 22:37 | Internal Med Progress Note ---
Hospitalist Progress Note - Encounter Date of Encounter: 09/02/18 Time of Encounter: 15:00 - Subjective Interval History: SUBJECTIVE: I saw this patient after bronchoscopy/insertion of a right-sided Pleurx catheter. He feels good. He is not voicing any particular symptoms. He uses supplemental oxygen at 4 L/min nasal cannula. He does get mild cough b ut not wheezing. Denies chest pain. Denies abdominal pain, nausea and vomiting. He makes good amounts of urine. OBJECTIVE: Skin: Free of rash and discoloration. ENMT: Oral/pharyngeal mucosa is normal in appearance. Eyes: Sclera is white. There is no discharge from eyes. Respiratory: Normal breath sounds; no crackles or wheezes. CV: Heart is regular; no gallop or murmur. GI: Abdomen is soft and not tender. There is no palpable mass or visceromegaly. Neuro: There is no focal deficits. ADDITIONAL DATA: CBC shows hemoglobin of 15.0 with normal WBC and platelet count. His BMP shows normal electrolytes and creatinine of 0.62. His fasting glucose is 131. ASSESSMENT AND PLAN: Right pleural effusion/flank mass. Possible pneumonia/COPD. Acute respiratory failure with hypoxia. Bronchoscopy has been done for tissue diagnosis. Pleurx has been inserted for controlling right-sided pleural effusion. The patient is on IV Rocephin/IV Solu-Medrol/nebulizer treatments with DuoNeb. Oncology/palliative care has been consulted. We anticipate his discharge home with hospice tomorrow or after tomorrow. - Exam Vitals: Temp Pulse Resp BP Pulse Ox 97.8 F 87 16 100/68 90 09/02/18 21:00 09/02/18 21:00 09/02/18 21:00 09/02/18 21:00 09/02/18 21:00 Exam: xx - Assessment and Plan (1) Pleural effusion Current Visit: Yes Status: Acute (2) Pneumonia Current Visit: Yes Status: Acute (3) Acute respiratory failure with hypoxia Current Visit: Yes Status: Acute (4) Lung mass Current Visit: Yes Status: Acute (5) Tobacco abuse Current Visit: Yes Status: Acute (6) Pulmonary embolism Current Visit: Yes Status: Acute (7) Sepsis Current Visit: Yes Status: Resolved (8) DVT (deep venous thrombosis) Current Visit: Yes Status: Acute (9) PAD (peripheral artery disease) Current Visit: Yes Status: Acute - Time Spent with Patient Total time spent is greater than 50% in coordination of care (as documented) at patient's floor/unit and/or counseling patient: 25 - 35 minutes Plan of Care Discussed with: patient Internal Medicine: Result - Labs CBC & Chem 7: 09/02/18 03:03 09/02/18 03:03 Labs: Short CBC 09/02/18 Range/Units 03:03 WBC 9.9 (4.3-11.1) K/mcL Hgb 15.0 (12.9-16.9) g/dL Hct 45.2 (37.5-50.1) % Plt Count 206 (140-400) K/mcL Neutrophils # 8.8 (1.6-8.9) K/mcL BMP 09/02/18 03:03 Sodium 135 L Potassium 4.1 Chloride 96 L Carbon Dioxide 30 H BUN 18 Creatinine 0.62 L Glucose 131 H Calcium 8.5 L - ABG Interpretation ABG results: PT/INR, D-dimer PT 14.6 Seconds (9.4-12.1) H 09/02/18 03:03 - Impressions Impressions Chest X-Ray 09/02/18 13:10 IMPRESSION: 1. Large right pleural effusion, not appreciably changed following PleurX catheter placement. No pneumothorax. 2. Infiltrate noted throughout the right lung, stable, and concerning for pneumonia. 3. Mild atelectasis in the left lung base. D/ / 09/02/2018 14:37:22 John Paredes MD / griselda Interpreting Provider: John Paredes MD Consult Discharge Plan - Plan Referrals: NONE,PCP [Primary Care Provider] - (2) Pneumonia Qualifiers: Pneumonia type: due to unspecified organism Laterality: right Lung location: unspecified part of lung Qualified Code(s): J18.9 - Pneumonia, unspecified organism (6) Pulmonary embolism Qualifiers: Pulmonary embolism type: saddle Chronicity: unspecified Acute cor pulmonale presence: without acute cor pulmonale Qualified Code(s): I26.92 - Saddle embolus of pulmonary artery without acute cor pulmonale (7) Sepsis Qualifiers: Sepsis type: sepsis due to unspecified organism Qualified Code(s): A41.9 - Sepsis, unspecified organism
[2018-09-03] MEDS: MethylPREDNISolone 40 MG/ML VIAL IVP SCH ×2 (04:05→10:42)
[2018-09-03] MEDS: *HR* Enoxaparin 80 MG/0.8 ML SYRINGE SQ SCH ×2 (04:05→16:48)
[2018-09-03] MEDS: Ipratropium/Albuterol Neb 3 ML IH SCH ×3 (04:45→16:32)
--- NOTE | 2018-09-03 10:08 | Pulmonology Progress Note ---
<NixonCallum S - Last Filed: 09/03/18 11:15> Date of Encounter: 09/03/18 Time of Encounter: 10:06 Assessment and Plan (1) Pleural effusion Current Visit: Yes Status: Acute Pt presented with increasing SOB from his baseline on 08/31/2018 - was recently admitted for SOB on 08/20/[address] at that time showed right pleural effusion , masslike confluent parenchymal density in medial aspect of medial lobe ?mets to liver ?lytic bone lesions CXR in the ER showed a large right pleural effusion CTA of the chest showed lower left lobe PE - mets to the spine/ribs - large right pleural effusion Pt had Pleurex cath placement and bronchoscopy with Dr. Boyce on 09/02/18, he tolerated the procedure well - suspicious lesions were found - EBUS guided biopsies performed - extrinsic copression at broncus intermedius and RLL secondary to effusion - narrowing in BI and RLL, lesion had malignant appearance Pt most likely has an exudative pleural effusion secondary to lung cancer Based on Light's Criteria pt meets criteria for exudative effusion Pleural fluid protein/serum protein >0.5 and pleural fluid LDH/serum LDH >0.6 Total output as of this mornincc Plan: - pt on Lovenox for PE , will be bridged to Coumadin - palliative care consulted - heme onc consulted Initial path thought to be non-small cell carcinoma, full path report pending - plan to follow up with Dr Boyce in the clinic early next week - complete a 7-10 day total days of abx. Pt on day #3 rocephin, continue Augmentin x 7days as per below - home hospice to show family how to drain fluid - pt to be d/c today or tomorrow with home hospice (2) Pulmonary embolism Current Visit: Yes Status: Acute See plan as above. Qualifiers: Pulmonary embolism type: saddle Chronicity: unspecified Acute cor pulmona le presence: without acute cor pulmonale Qualified Code(s): I26.92 - Saddle embolus of pulmonary artery without acute cor pulmonale (3) Pneumonia Current Visit: Yes Status: Acute Pt has increasing sputum production, fevers - most likely bacterial Legionella and strep pneumo antigens negative Sputum cx negative Pt currently does not sepsis criteria - WBC count of 9.9, HR 80 - RR 18, has been afebrile, BP stable overnight Plan: - continue rocephin 3, consider switching to PO beta lactam for a total of 7- 10days tx - keep O2 sat >88% - duonebs - blood cultures pending - solumedrol 40mg IVP TID Qualifiers: Pneumonia type: due to unspecified organism Laterality: right Lung location: unspecified part of lung Qualified Code(s): J18.9 - Pneumonia, unspecified organism (4) Acute respiratory failure with hypoxia Current Visit: Yes Status: Resolved Resolved. See plan as above. (5) Lung mass Current Visit: Yes Status: Acute See plan as above. (6) DVT prophylaxis Current Visit: Yes Status: Acute PO Lovenox (7) Tobacco abuse Current Visit: Yes Status: Acute Counseling given (8) Sepsis Current Visit: Yes Status: Resolved Resolved. See plan as above. Qualifiers: Sepsis type: sepsis due to unspecified organism Qualified Code(s): A41.9 - Sepsis, unspecified organism Subjective Principal diagnosis: Lung Mass Interval history: Mr. Payne is a 73yo male seen at bedside. He states his breathing has been much better since his Pleurex procedure on 09/02/2018. He tolerated that and his bronchoscopy well. He continues to deny hemoptysis, chest pain, N/V/D, abd pain. Objective PUL Vital signs: Last Vital Signs Temp 97.7 F 09/03/18 06:56 Pulse 80 09/03/18 06:56 Resp 16 09/03/18 06:56 BP 137/67 09/03/18 06:56 Pulse Ox 91 09/03/18 06:56 General appearance: no acute distress Eyes: nonicteric ENT: oropharynx moist Neck: supple Auscultation: bilateral: diminished breath sounds Cardiovascular: regular rate and rhythm Gastrointestinal: normoactive bowel sounds, soft, non-tender, non-distended Integumentary: normal Extremities: no cyanosis Musculoskeletal: no deformities normal mental status, non-focal exam mood appropriate, affect normal Results - Laboratory Findings CBC and BMP: 09/02/18 03:03 09/02/18 03:03 PT/INR, D-dimer PT 14.6 Seconds (9.4-12.1) H 09/02/18 03:03 Abnormal lab findings: Abnormal lab results RDW 14.6 % (11.5-14.5) H 09/02/18 03:03 PT 14.6 Seconds (9.4-12.1) H 09/02/18 03:03 Sodium 135 mEq/L (136-145) L 09/02/18 03:03 Chloride 96 mEq/L (98-107) L 09/02/18 03:03 Carbon Dioxide 30 mEq/L (23-29) H 09/02/18 03:03 Creatinine 0.62 mg/dL (0.70-1.30) L 09/02/18 03:03 BUN/Creatinine Ratio 29 (6-26) H 09/02/18 03:03 Glucose 131 mg/dL (70-105) H 09/02/18 03:03 Calcium 8.5 mg/dL (8.6-10.3) L 09/02/18 03:03 Ur Specific [place] > 1.030 (1.010-1.025) H 09/01/18 00:15 Urine Ketones Trace mg/dL (Negative) H 09/01/18 00:15 Urine Bilirubin Small (Negative) H 09/01/18 00:15 Ur Squamous Epith Cells Many per lpf (None-Few) H 09/01/18 00:15 Pleural Appearance Cloudy (Clear) A 09/02/18 12:24 Pleural RBC 0.023 M/mcL (0.000-0.002) H 09/02/18 12:24 - Microbiology Findings Microbiology Findings: Microbiology, Last 48 Hours 09/02/18 12:24 Respiratory Culture - Preliminary Right Lower Lobe Lung 09/01/18 14:34 Sputum Culture - Final Sputum - Clinical Findings Intake & Output: Intake & Output 09/02/18 09/03/18 09/03/18 23:59 07:59 15:59 Intake Total 120 / 120 0 / 0 240 / 240 Output Total 500 / 500 0 / 0 1100 / 1100 Balance -380 / -380 0 / 0 -860 / -860 Weight 76.6 kg Consult Discharge Plan - Plan Referrals: Bill Boyce MD [Partnered Physician] - (appt requested) NONE,PCP [Primary Care Provider] - Prescriptions: RX: OxyCODONE Immed Rel [Roxicodone 5 MG] 5 mg PO Q6HR PRN 7 Days #28 tablet PRN Reason: Pain Enoxaparin [Lovenox] 80 mg SQ Q12HR #14 syr Amoxicillin/Clavulanate [Augmentin] 875 mg PO BIDWM #14 tablet LORazepam [Ativan] 0.5 mg PO QID PRN 7 Days #30 tablet PRN Reason: Anxiety Mirtazapine [Remeron] 15 mg PO HS #7 tablet RX: predniSONE [PredniSONE] 40 mg PO DAILY #5 tablet RX: Warfarin [Coumadin] 3 mg PO 1800 #30 tablet <Bill Boyce M - Last Filed: 09/03/18 12:30> Date of Encounter: 09/03/18 Objective PUL Vital signs: Last Vital Signs Temp 97.5 F L 09/03/18 12:06 Pulse 91 09/03/18 12:06 Resp 16 09/03/18 12:06 BP 87/56 09/03/18 12:06 Pulse Ox 91 09/03/18 12:06 Results - Laboratory Findings CBC and BMP: 09/02/18 03:03 09/02/18 03:03 PT/INR, D-dimer PT 14.6 Seconds (9.4-12.1) H 09/02/18 03:03 Abnormal lab findings: Abnormal lab results RDW 14.6 % (11.5-14.5) H 09/02/18 03:03 PT 14.6 Seconds (9.4-12.1) H 09/02/18 03:03 Sodium 135 mEq/L (136-145) L 09/02/18 03:03 Chloride 96 mEq/L (98-107) L 09/02/18 03:03 Carbon Dioxide 30 mEq/L (23-29) H 09/02/18 03:03 Creatinine 0.62 mg/dL (0.70-1.30) L 09/02/18 03:03 BUN/Creatinine Ratio 29 (6-26) H 09/02/18 03:03 Glucose 131 mg/dL (70-105) H 09/02/18 03:03 Calcium 8.5 mg/dL (8.6-10.3) L 09/02/18 03:03 Ur Specific [place] > 1.030 (1.010-1.025) H 09/01/18 00:15 Urine Ketones Trace mg/dL (Negative) H 09/01/18 00:15 Urine Bilirubin Small (Negative) H 09/01/18 00:15 Ur Squamous Epith Cells Many per lpf (None-Few) H 09/01/18 00:15 Pleural Appearance Cloudy (Clear) A 09/02/18 12:24 Pleural RBC 0.023 M/mcL (0.000-0.002) H 09/02/18 12:24 - Microbiology Findings Microbiology Findings: Microbiology, Last 48 Hours 09/02/18 12:24 Respiratory Culture - Preliminary Right Lower Lobe Lung 09/01/18 14:34 Sputum Culture - Final Sputum - Clinical Findings Intake & Output: Intake & Output 09/02/18 09/03/18 09/03/18 23:59 07:59 15:59 Intake Total 120 / 120 0 / 0 240 / 240 Output Total 500 / 500 0 / 0 1100 / 1100 Balance -380 / -380 0 / 0 -860 / -860 Weight 76.6 kg - Attending Attestation I examined this patient and my medical decision-making was reviewed with the Resident Physician. I agree with the documented findings, disposition and treatment plan as described except to the extent set forth below. Patient seen and examined. Labs, radiology, chart personally reviewed. Agree with resident's history and physical, assessment, plan with following comments: DOCK COORDINATOR: Patient follows commands, Pulmonary: Acceptable oxygenation and ventilation. Patient is feeling better after bronchoscopy and placement of Pleurx pleural catheter. At this time catheter in place and drained more fluid and patient tolerated procedure very well without immediate complications. Unfortunately failure family are not available to explain to them how to drain the fluid and that this time it might be uncomfortable to drain more for that reason outpatient follow-up can be done next week if necessary to explain to them how to do it otherwise hospice nurse and he would as well. This can be done every other day or based on patient's symptoms and the amount of the fluid that Drained. Follow up on pathology and cytology with oncology if patient will follow-up. Cardiovascular: stable
[2018-09-03] MEDS: cefTRIAXone 2,000 MG in Water for inj. (sterile) 20 ML 20 ML IVP SCH (10:40)
[2018-09-03] MEDS: Nicotine 21 MG PATCH.TD24 TD SCH (10:40)
--- NOTE | 2018-09-03 11:49 | Palliative Progress Note ---
Date of Encounter: 09/03/18 Time of Encounter: 09:30 - Assessment and plan (1) Pleural effusion Current Visit: Yes Status: Acute Assessment and plan: Patient had Pleurx placed yesterday, drained today for 1L; tolerated well. Received phone call from [facility], will care for Pleurx, but cannot get drainage supplies until next week due to holiday. Spoke with Dr. Alicea (Resident Pulmology) arranging for second box (8 cannisters) to be sent home with patient today. Family updated. Informed Yara at [facility] hosp[facility] of plan for additional cannisters. (2) Pneumonia Current Visit: Yes Status: Acute Assessment and plan: Patient will transition to PO antibiotics per Primary team. Qualifiers: Pneumonia type: due to unspecified organism Laterality: right Lung loc ation: unspecified part of lung Qualified Code(s): J18.9 - Pneumonia, unspecified organism (3) Acute respiratory failure with hypoxia Current Visit: Yes Status: Resolved Assessment and plan: Patient's oxygen saturation 92% on Room air, during assessment. (4) Lung mass Current Visit: Yes Status: Acute Assessment and plan: Patient expressed desires for no further aggressive cancer management. (5) Goals of care, counseling/discussion Current Visit: Yes Status: Acute Assessment and plan: Patient to discharge home today with [facility]. Prescriptions called into pharmacy for Oxycodone, Ativan, Remeron, and Coumadin. Patient will be on Lovenox and Coumadin times 1 week to allow bridge for comfort. Family in agreement of discharge plan. Primary team sending Rx for Lovenox and oral antibiotics. Family present and agreeable to take patient home. Spoke with Care Management regarding additional containers, unsure of how to obtain. Met with Dr. Alicea and explained need for additional drain canisters from Pulmnology for discharge today. Additional cannisters arranged per Dr. Alicea. [facility] updated that family has refused hospital bed at this time, spoke with Yara . Notified Primary RN Carol of plan, verbalized understanding. Family inquired if hospice would pay for transport home, unfortunately this is not possible as patient is not enrolled in program yet; verbalized understanding. (6) Poor appetite Current Visit: Yes Status: Acute Assessment and plan: Patient reports improved appetite noted today. Continue Remeron for Depression and appetite support. - Time Spent With Patient Total time spent is greater than 50% in coordination of care (as documented) at patient's floor/unit and/or counseling patient: 25 - 35 minutes - Subjective Interval history: Patient sitting up in bed with eyes opened, speaking with nurse upon arrival for assessment. LUCIAN Medina reported repeat drain of 1L from Pleurx today. Patient alert and oriented, appears in good spirits. No family at bedside at this time. Patient denies pain, anxiety, dyspnea, nausea, and vomiting. Patient reports he is ready to go home with Hospice today. Upon return to room, patient's ex-, daughter present at bedside. Report they are ready to bring him home. - Constitutional Vitals: Abnormal lab results RDW 14.6 % (11.5-14.5) H 09/02/18 03:03 PT 14.6 Seconds (9.4-12.1) H 09/02/18 03:03 Sodium 135 mEq/L (136-145) L 09/02/18 03:03 Chloride 96 mEq/L (98-107) L 09/02/18 03:03 Carbon Dioxide 30 mEq/L (23-29) H 09/02/18 03:03 Creatinine 0.62 mg/dL (0.70-1.30) L 09/02/18 03:03 BUN/Creatinine Ratio 29 (6-26) H 09/02/18 03:03 Glucose 131 mg/dL (70-105) H 09/02/18 03:03 Calcium 8.5 mg/dL (8.6-10.3) L 09/02/18 03:03 Ur Specific [place] > 1.030 (1.010-1.025) H 09/01/18 00:15 Urine Ketones Trace mg/dL (Negative) H 09/01/18 00:15 Urine Bilirubin Small (Negative) H 09/01/18 00:15 Ur Squamous Epith Cells Many per lpf (None-Few) H 09/01/18 00:15 Pleural Appearance Cloudy (Clear) A 09/02/18 12:24 Pleural RBC 0.023 M/mcL (0.000-0.002) H 09/02/18 12:24 General appearance: Present: cooperative, no acute distress - Head Head exam: Present: atraumatic, normal inspection - Eye Eye exam: Present: PERRL Pupils: Present: normal accommodation, PERRL - ENT ENT exam: Present: mucous membranes dry, normal external ear exam - Neck Neck exam: Present: full ROM, normal inspection - Respiratory Respiratory exam: Present: CTAB, wheezes. Absent: respiratory distress - Cardiovascular Cardiovascular exam: Present: +S1, +S2 - GI/Abdominal GI/Abdominal exam: Present: hypoactive bowel sounds, soft. Absent: tenderness - Rectal Rectal exam: Present: deferred - Extremities Exam Extremities exam: Present: pedal edema. Absent: calf tenderness - Neurological Exam Neurological exam: Present: alert, oriented X3, strengths equal and symetr throughout. Absent: altered - Psychiatric Psychiatric exam: Present: normal affect, normal mood - Skin Skin exam: Present: intact, pallor, warm Palliative Quality Palliative Quality: Screen for Code Status: Yes, Screen for Goals of Care: Yes, Screen for Pain: Yes, If Pain Regimen Started, Initiate Bowel Regimen: NA, Screen for Nausea/Vomitting: Yes Code Status: 08/31/18 20:02 Resuscitation Status: Active [RES] Routine Comment: Resuscitation Status: Full Code 09/02/18 10:50 DNR [Resuscitation Status: Active] [RES] Routine Comment: State form completed. Resuscitation Status: DNR-Comfort Care - Labs CBC & Chem 7: 09/02/18 03:03 09/02/18 03:03 Labs: Laboratory Results - last 24 hr 09/02/18 09/02/18 09/02/18 12:24 12:24 12:24 Fluid Source RLL BAL Fluid Volume 15 Fluid Appearance Clear Fluid RBC < 0.002 Fld Tot Nucleated Cell 185 Fluid Seg Neutrophil % 82.0 Fld Band Neutrophil % Test Not Performed Fluid Lymphocytes % 4.0 Fluid Monocytes % 1.0 Fluid Eosinophils % Test Not Performed Fluid Basophils % Test Not Performed Fluid Other Cells % 13.0 Pleural Fluid Volume 500.0 Pleural Appearance Cloudy A Pleural pH 8.00 Pleural RBC 0.023 H Pleural Tot Nuc Cell 508 Pleural Neutrophils 4.0 Pleural Band Neuts Test Not Performed Pleural Eosinophils 8.0 Pleural Basophils Test Not Performed Pleural Lymphocytes % 56.0 Pleural Monocytes % Test Not Performed Pleural Other Cells % 32.0 Pleural Total Protein 3.9 Pleural LDH 777 Pleural Glucose 70 - Impressions Impressions Chest X-Ray 09/02/18 13:10 IMPRESSION: 1. Large right pleural effusion, not appreciably changed following PleurX catheter placement. No pneumothorax. 2. Infiltrate noted throughout the right lung, stable, and concerning for pneumonia. 3. Mild atelectasis in the left lung base. D/ / 09/02/2018 14:37:22 John Paredes MD / griselad Interpreting Provider: John Paredes MD - ABG Interpretation ABG results: PT/INR, D-dimer PT 14.6 Seconds (9.4-12.1) H 09/02/18 03:03 Palliative Scale - Palliative Performance Scale How ambulatory is this patient?: Mainly sit / lie What is patient's level of activity and evidence of disease?: Unable hobby/housework, Significant disease How much self-care assistance does patient require?: Considerable assistance required How much oral intake does the patient have?: Normal or reduced What is this patient's level of consciousness?: Full Palliative Performance Score: 50 % Consult Discharge Plan - Plan Referrals: Bill Boyce MD [Partnered Physician] - (appt requested) NONE,PCP [Primary Care Provider] - Prescriptions: OxyCODONE Immed Rel [Roxicodone 5 MG] 5 mg PO Q6HR PRN 7 Days #28 tablet PRN Reason: Pain Enoxaparin [Lovenox] 80 mg SQ Q12HR #14 syr Amoxicillin/Clavulanate [Augmentin] 875 mg PO BIDWM #14 tablet LORazepam [Ativan] 0.5 mg PO QID PRN 7 Days #30 tablet PRN Reason: Anxiety Mirtazapine [Remeron] 15 mg PO HS #7 tablet predniSONE [PredniSONE] 40 mg PO DAILY #5 tablet Warfarin [Coumadin] 3 mg PO 1800 #30 tablet
[2018-09-03 12:07] VITALS: BP 87/56
--- NOTE | 2018-09-03 14:13 | Discharge Summary ---
Orders not resulted at time of discharge: Pending orders 08/31/18 19:05 Culture,Blood [BC] Stat 08/31/18 20:04 Albumin,Body Fluid Routine 09/02/18 12:24 Culture,Respiratory [RM] Routine 09/02/18 12:41 Cytology [PTH] Routine 09/02/18 13:23 Cytology [PTH] Routine 09/04/18 04:00 PT/INR [Prothrombin Time INR] [COAG] AM 0400 09/05/18 04:00 PT/INR [Prothrombin Time INR] [COAG] AM 0400 09/06/18 04:00 PT/INR [Prothrombin Time INR] [COAG] AM 0400 Date of Encounter: 09/03/18 Time of Encounter: 14:09 - Discharge Diagnosis (1) Lung mass Priority: Primary Status: Acute (2) Pleural effusion Priority: Primary Status: Acute (3) Pneumonia Priority: Primary Status: Suspected Qualifiers: Pneumonia type: due to unspecified organism Laterality: right Lung location: unspecified part of lung Qualified Code(s): J18.9 - Pneumonia, unspecified organism (4) Pulmonary embolism Priority: Primary Status: Acute Qualifiers: Pulmonary embolism type: other Chronicity: unspecified Acute cor pulmonale presence: without acute cor pulmonale Qualified Code(s): I26.99 - Other pulmonary embolism without acute cor pulmonale (5) DVT (deep venous thrombosis) Priority: Primary Status: Acute Qualifiers: DVT location: lower extremity Affected thrombotic vein of extremity: f emoral Chronicity: acute Laterality: left Qualified Code(s): I82.412 - Acute embolism and thrombosis of left femoral vein (6) Acute respiratory failure with hypoxia Priority: Primary Status: Acute (7) Sepsis Priority: Primary Status: Resolved Qualifiers: Sepsis type: sepsis due to unspecified organism Qualified Code(s): A41.9 - Sepsis, unspecified organism Hospital course: HOSPITAL COURSE: The patient is a 73-year-old man. We admitted him with progressing dyspnea developing in the last last several days preceding this admission. It was on 08/20, when he was diagnosed with a lung mass/right pleural effusion in the emergency department. He decided not to be admitted. He decided for outpatient treatments. He was sent home with prescription for antibiotic as we suspected him to have a developing pneumonia. It was shortness of breath worsened him to come to the emergency room again. We found him to have a right flank mass with large right-sided pleural effusion. We found him to have a DVT in left common femoral vein; with radiation to left tibial veins. It was associated with suspected to have pulmonary embolism in left lower lobe. The patient was put on IV heparin drip. Additionally, we gave him IV Rocephin/IV Zithromax. Consultation was obtained from pulmonary diseases. Dr. Eller did bronchoscopy with her tissue biopsy. He also did right Pleurx catheter insertion. Significant amount of malignant pleural fluid was retrieved. Then, we presented this patient to oncology and palliative care. The patient decided for palliative care (hospice) at home. CONDITION AT DISCHARGE: The patient feels good. Denies having pain. Denies difficulty breathing; on 4 L/min nasal cannula oxygen. He seems to have normal appetite. He is able to ambulate on his own. Skin: Free of rash and discoloration. Respiratory: Normal breath sounds with no crackles and wheezes bilaterally. CV: Heart is regular with no gallop or murmur. GI: Abdomen is flat and soft with no palpable mass or visceromegaly. Neuro exam: There is no focal deficits. Normal speech, swallowing and gait. SEE DISCHARGE ORDERS/MEDICATIONS.. The patient was started on oral warfarin in the hospital. His pro time is subtherapeutic. He got 7 days of subcutaneous Lovenox for bridging. Hospice is going to follow this patient at home. Additionally, Dr. Eller will provide him with follow-up, if needed. Respiratory today, his pathology is pending. Discharge discussed with: patient, nurse, social work, case management - Time Spent with Patient Total time spent providing and/or coordinating discharge services: Greater than 30 minutes (45 minutes..) - Discharge Medications Prescriptions: Albuterol Neb [Proventil Neb] 2.5 mg IH [id number] PRN #50 inhsol PRN Reason: Shortness Of Breath/Wheezing OxyCODONE Immed Rel [Roxicodone 5 MG] 5 mg PO Q6HR PRN 7 Days #28 tablet PRN Reason: Pain Enoxaparin [Lovenox] 80 mg SQ Q12HR #14 syr Amoxicillin/Clavulanate [Augmentin] 875 mg PO BIDWM #14 tablet LORazepam [Ativan] 0.5 mg PO QID PRN 7 Days #30 tablet PRN Reason: Anxiety Mirtazapine [Remeron] 15 mg PO HS #7 tablet predniSONE [PredniSONE] 40 mg PO DAILY #5 tablet Warfarin [Coumadin] 3 mg PO 1800 #30 tablet Home Medications: Aspirin [Lo-Dose Aspirin EC] 81 mg PO DAILY 08/18/15 [History] Acetaminophen [Tylenol] 650 mg PO Q6HR PRN tablet 09/03/18 [Rx] Albuterol Neb [Proventil Neb] 2.5 mg IH [id number] PRN #50 inhsol 09/03/18 [Rx] Amoxicillin/Clavulanate [Augmentin] 875 mg PO BIDWM #14 tablet 09/03/18 [Rx] Enoxaparin [Lovenox] 80 mg SQ Q12HR #14 syr 09/03/18 [Rx] LORazepam [Ativan] 0.5 mg PO QID PRN 7 Days #30 tablet 09/03/18 [Rx] Mirtazapine [Remeron] 15 mg PO HS #7 tablet 09/03/18 [Rx] OxyCODONE Immed Rel [Roxicodone 5 MG] 5 mg PO Q6HR PRN 7 Days #28 tablet [Rx] Warfarin [Coumadin] 3 mg PO 1800 #30 tablet 09/03/18 [Rx] predniSONE [PredniSONE] 40 mg PO DAILY #5 tablet 09/03/18 [Rx] Allergies/Adverse Reactions: Allergy/AdvReac Type Severity Reaction Status Date / Time No Known Allergies Allergy Verified 08/31/18 18:37 Date of admission: 08/31/18 20:00 Primary care physician: PCP NONE Consults: 08/31/18 20:00 Consult to Physical Therapy [CONS] Routine Comment: Evaluate, develop and implement POC Reason for Consult: PT eval Does patient have active BEDREST order?: No Is patient medically & hemodynamically stable?: Yes 08/31/18 20:02 Consult to Pulmonology [CONS] Stat Consulting Provider: [facility] Reason for Consult: lung mass/pleural effusion Call Completed: No 08/31/18 20:06 Consult to Oncology [CONS] Stat Consulting Provider: [facility] Reason for Consult: lung mass. suspected mets Call Completed: No 08/31/18 22:43 Consult to Nutrition [CONS] Routine Comment: Consulting Provider: NUTRITION Reason for Dietary Consult: Other Other:: Unable to eat, patient states weight loss Consult to Ldr Rn [CONS] Routine Reason for SW Consult: Home needs 09/01/18 12:07 Consult to Palliative Care [CONS] Routine Comment: Consulting Provider: Palliative Care [facility] Reason for Consult: lung mass possible CA Call Completed: No Discharging clinician: Raul Espinal Anticipated date of discharge: 09/03/18 - Constitutional Vitals: Temp Pulse Resp BP Pulse Ox 97.5 F L 91 16 87/56 91 09/03/18 12:06 09/03/18 12:06 09/03/18 12:06 09/03/18 12:06 09/03/18 12:06 General appearance: Present: A&O X 3, answers questions appropriately Exam: xx - Patient Status Disposition: Hospice - Home Condition: Fair Functional capacity at discharge: independent ambulation (may need assistance at times..) - Discharge Instructions Instructions: Warfarin (By mouth), Amoxicillin/Clavulanate Potassium (By mouth), Enoxaparin (Injection), Pleural Effusion (DC) Follow Up With: Bill Boyce MD [Partnered Physician] - (appt requested) NONE,PCP [Primary Care Provider] - Forms: ED Satisfaction Letter Additional Instructions: PRO TIME - IN 2 DAYS; THEN, MONTHLY PLUS "IF NEEDED" - Diet and Activity Activity: increase activity as tolerated (may need assistance at times..) Diet: regular diet - VTE Deep Vein Thrombosis/Pulmonary Embolism Present on Admission: Yes
--- NOTE | 2018-09-03 14:32 | Physician Discharge Referral ---
Home Health/Hosp Referral Info Transfer to: Hospice Attending Provider: Roshan Espinal MD Provider in Charge Post Discharge: [employer] - Diagnosis (1) Lung mass Priority: Primary Status: Acute (2) Pleural effusion Priority: Primary Status: Acute (3) Pneumonia Priority: Primary Status: Suspected (4) Pulmonary embolism Priority: Primary Status: Acute (5) DVT (deep venous thrombosis) Priority: Primary Status: Acute (6) Acute respiratory failure with hypoxia Priority: Primary Status: Acute (7) Sepsis Status: Resolved - Respiratory Orders Oxygen / L per min (4 l/min) Smoking Cessation: Smoking cessation has been advised. For more information, call the [place] Tobacco Quit Line at 4-926-RVKX-NOW. - Diet/Nutrition Diet/Nutrition Orders: Regular - Activity Activity Orders: Up ad martine - Services Needed Following services are medically necessary services: Nursing, Home Health Aide - Transfer Medications Prescriptions: Albuterol Neb [Proventil Neb] 2.5 mg IH [id number] PRN #50 inhsol PRN Reason: Shortness Of Breath/Wheezing OxyCODONE Immed Rel [Roxicodone 5 MG] 5 mg PO Q6HR PRN 7 Days #28 tablet PRN Reason: Pain Enoxaparin [Lovenox] 80 mg SQ Q12HR #14 syr Amoxicillin/Clavulanate [Augmentin] 875 mg PO BIDWM #14 tablet LORazepam [Ativan] 0.5 mg PO QID PRN 7 Days #30 tablet PRN Reason: Anxiety Mirtazapine [Remeron] 15 mg PO HS #7 tablet predniSONE [PredniSONE] 40 mg PO DAILY #5 tablet Warfarin [Coumadin] 3 mg PO 1800 #30 tablet Home Medications: Aspirin [Lo-Dose Aspirin EC] 81 mg PO DAILY 08/18/15 [History] Acetaminophen [Tylenol] 650 mg PO Q6HR PRN tablet 09/03/18 [Rx] Albuterol Neb [Proventil Neb] 2.5 mg IH [id number] PRN #50 inhsol 09/03/18 [Rx] Amoxicillin/Clavulanate [Augmentin] 875 mg PO BIDWM #14 tablet 09/03/18 [Rx] Enoxaparin [Lovenox] 80 mg SQ Q12HR #14 syr 09/03/18 [Rx] LORazepam [Ativan] 0.5 mg PO QID PRN 7 Days #30 tablet 09/03/18 [Rx] Mirtazapine [Remeron] 15 mg PO HS #7 tablet 09/03/18 [Rx] OxyCODONE Immed Rel [Roxicodone 5 MG] 5 mg PO Q6HR PRN 7 Days #28 tablet 09/03/18 [Rx] Warfarin [Coumadin] 3 mg PO 1800 #30 tablet 09/03/18 [Rx] predniSONE [PredniSONE] 40 mg PO DAILY #5 tablet 09/03/18 [Rx] Allergies/Adverse Reactions: Allergy/AdvReac Type Severity Reaction Status Date / Time No Known Allergies Allergy Verified 08/31/18 18:37 Certification: Further, I certify that my clinical findings support that this patient is homebound (i.e. absences from home require considerable and taxing effort and are for medical reasons or yarsanism services or infrequently or short duration when for other reasons) because: Homebound Reason: Severity of cardiac or pulmonary status limits activity tolerance Attestation: My signature below is to certify that this patient is under my care and that I, or nurse practitioner, or a physician's curriculum assistant working with me, has a [id number] encounter with this patient.
[2018-09-03] MEDS ORDERED: *HR* Warfarin 3 MG TABLET PO SCH (18:00)
[2018-09-03] MEDS ORDERED: Warfarin perPT PO PRN (18:00)
[2018-09-06 04:50] LABS: Fluid Source for Albumin PLEURAL
== END 2018-09-03 19:58 | disposition hospice, home (50) | DRG 871 ==
LOC: EMEROOARM 18:28 → 2NENU 18:28 → SUATTDRO 20:00 → 2NENU 20:49
PROVIDERS: ADMIT Internal Medicine; ATTEND Internal Medicine